=== PATIENT | female | born 1940 | race Caucasian/White ===

== ENCOUNTER → 2016-03-19 | Outpatient (CLI) | payer MEDICARE, OTHER ==
[~2016-03-19] MED LIST: ATE50T PO; GLIP-116 PO; LATA0.0015 EACHEYE; LEVO0.5S24 OP; LIS20T PO; MET50T PO; NIFE60TA59 PO; RIVA20TA PO
[2016-03-19 12:07] LABS: Basophils # (auto) 0 uL; Basophils % (auto) 0.4 % (0.0-2.0); Eosinophils # (auto) 0.2 uL; Eosinophils % (auto) 1.7 % (0.0-7.0); Hematocrit 45.8 % (36.0-46.0); Hemoglobin 14.8 g/dL (12.2-16.2); Lymphocytes # (auto) 1.7 uL; Lymphocytes % (auto) 16.5 % (10.0-50.0); Mean Corpuscular Hemoglobin 28.2 pg (28.0-32.0); Mean Corpuscular Hgb Conc. 32.2 g/dL (32.0-36.0); Mean Corpuscular Volume 87.4 fL (80.0-100.0); Mean Platelet Volume 10.2 fL (7.4-10.4); Monocytes # (auto) 0.7 uL; Monocytes % (auto) 7.1 % (0.0-12.0); Neutrophils # (auto) 7.6 uL; Neutrophils % (auto) 74.3 % (37.0-80.0); Platelet Count (auto) 229 10^3/uL (140-450); Red Cell Distribution Width 13.7 % (11.6-16.0); White Blood Cell 10.3 10^3/uL (4.4-10.8)
[2016-03-19 12:26] LABS: Albumin 3.9 g/dL (3.4-5.0); BUN/Creatinine Ratio 19.9; Calcium 9.7 mg/dL (8.5-10.1); Phosphorus 2.8 mg/dL (2.5-4.90); Potassium 4.4 mmol/L (3.5-5.1); Uric Acid 6.8 mg/dL (2.6-6.0)
[2016-03-19 12:32] LABS: Urine Protein/Creatinine Ratio 0.43
[2016-03-19 14:23] LABS: Urine Bilirubin Negative (Negative); Urine Blood Negative /uL (Negative); Urine Color Yellow (Yellow); Urine Ketone Negative (Negative); Urine Nitrite Negative (Negative); Urine RBC 4 /hpf (0 - 4); Urine Squamous Epithelial Cell FEW /hpf (<5); Urine Urobilinogen Normal (Negative); Urine pH 5.5 (5.0-8.0)
[2016-03-19 14:25] LABS: Urine Glucose 2+ mg/dL (Normal)
== END | disposition home or self-care (01) ==
LOC: LAB 10:43
PROVIDERS: ATTEND Internal Medicine Nephrology
DX: N18.3 Chronic kidney disease, stage 3 (moderate) (principal); D63.1 Anemia in chronic kidney disease; E21.3 Hyperparathyroidism, unspecified; E78.5 Hyperlipidemia, unspecified; M10.9 Gout, unspecified; R80.9 Proteinuria, unspecified; E55.9 Vitamin D deficiency, unspecified
CPT/HCPCS: 36415; 80069; 81001; 82306; 82570; 83970; 84156; 84550; 85025

== ENCOUNTER → 2016-09-17 | Outpatient (CLI) | payer MEDICARE, OTHER ==
[2016-09-17 08:32] LABS: Basophils # (auto) 0 uL; Basophils % (auto) 0.2 % (0.0-2.0); CONDITION Y; Eosinophils # (auto) 0.3 uL; Eosinophils % (auto) 2.9 % (0.0-7.0); Hematocrit 46.3 % (36.0-46.0); Lymphocytes # (auto) 1.7 uL; Lymphocytes % (auto) 15.6 % (10.0-50.0); Mean Corpuscular Hemoglobin 30.3 pg (28.0-32.0); Mean Corpuscular Hgb Conc. 34.5 g/dL (32.0-36.0); Mean Corpuscular Volume 87.8 fL (80.0-100.0); Mean Platelet Volume 8.6 fL (7.4-10.4); Monocytes # (auto) 1.1 uL; Monocytes % (auto) 9.6 % (0.0-12.0); Neutrophils # (auto) 7.9 uL; Neutrophils % (auto) 71.7 % (37.0-80.0); Platelet Count (auto) 265 10^3/uL (140-450); Red Cell Distribution Width 13.1 % (11.6-16.0); White Blood Cell 11.1 10^3/uL (4.4-10.8)
[2016-09-17 08:51] LABS: Albumin 4.2 g/dL (3.4-5.0); BUN/Creatinine Ratio 18.3; Calcium 9.9 mg/dL (8.5-10.1); Phosphorus 3.1 mg/dL (2.5-4.90); Potassium 4.7 mmol/L (3.5-5.1); Uric Acid 7.5 mg/dL (2.6-6.0)
== END | disposition home or self-care (01) ==
LOC: LAB 07:53
PROVIDERS: ATTEND Internal Medicine Nephrology
DX: N18.4 Chronic kidney disease, stage 4 (severe) (principal); D63.1 Anemia in chronic kidney disease; E21.3 Hyperparathyroidism, unspecified; E78.5 Hyperlipidemia, unspecified; M10.9 Gout, unspecified; R80.9 Proteinuria, unspecified; E55.9 Vitamin D deficiency, unspecified
CPT/HCPCS: 36415; 80069; 82306; 84550; 85025

== ENCOUNTER → 2016-10-23 | Outpatient (CLI) | payer MEDICARE, OTHER ==
[2016-10-23 08:39] LABS: Basophils # (auto) 0 uL; Basophils % (auto) 0.1 % (0.0-2.0); CONDITION Y; Eosinophils # (auto) 0.3 uL; Eosinophils % (auto) 2.7 % (0.0-7.0); Hematocrit 46.4 % (36.0-46.0); Hemoglobin 15.9 g/dL (12.2-16.2); Lymphocytes # (auto) 1.5 uL; Lymphocytes % (auto) 14.1 % (10.0-50.0); Mean Corpuscular Hemoglobin 29.9 pg (28.0-32.0); Mean Corpuscular Hgb Conc. 34.2 g/dL (32.0-36.0); Mean Corpuscular Volume 87.4 fL (80.0-100.0); Mean Platelet Volume 8.8 fL (7.4-10.4); Monocytes # (auto) 0.8 uL; Monocytes % (auto) 7.9 % (0.0-12.0); Neutrophils % (auto) 75.2 % (37.0-80.0); Platelet Count (auto) 260 10^3/uL (140-450); Red Cell Distribution Width 13.2 % (11.6-16.0); White Blood Cell 10.6 10^3/uL (4.4-10.8)
[2016-10-23 08:58] LABS: Albumin 4.2 g/dL (3.4-5.0); BUN/Creatinine Ratio 17.7; Bilirubin, Total 0.9 mg/dL (0.2-1.0); Calcium 10.1 mg/dL (8.5-10.1); Potassium 4.1 mmol/L (3.5-5.1); Total Protein 8.4 g/dL (6.4-8.2)
[2016-10-24 07:51] LABS: Urine Bilirubin Negative (Negative); Urine Blood 1+ /uL (Negative); Urine Color Yellow (Yellow); Urine Glucose Normal (Normal); Urine Ketone Negative (Negative); Urine Mucus FEW (None Seen); Urine Nitrite Negative (Negative); Urine RBC 7 /hpf (0 - 4); Urine Urobilinogen Normal (Negative); Urine WBC Clumps PRESENT /hpf (None Seen); Urine pH 5.5 (5.0-8.0)
== END | disposition home or self-care (01) ==
LOC: LAB 08:03
PROVIDERS: ATTEND Internal Medicine
DX: I11.0 Hypertensive heart disease with heart failure (principal); I50.9 Heart failure, unspecified; E55.9 Vitamin D deficiency, unspecified; E78.3 Hyperchylomicronemia; E11.9 Type 2 diabetes mellitus without complications
CPT/HCPCS: 36415; 80053; 80061; 81001; 83036; 84443; 85025

== ENCOUNTER → 2017-01-21 | Outpatient (CLI) | payer MEDICARE, OTHER | END | disposition home or self-care (01) | LOC: LAB 08:24 | PROVIDERS: ATTEND Physician Assistant | DX: E03.9 Hypothyroidism, unspecified (principal) | CPT/HCPCS: 36415; 84443 ==

== ENCOUNTER 2017-02-01 07:36 | Emergency (ER) | payer MEDICARE, OTHER ==
[~2017-02-01] VITALS: Ht 165.1 cm; Wt 73.9 kg
[2017-02-01 08:12] VITALS: BP 122/52
== END 2017-02-01 09:20 | disposition home or self-care (01) ==
LOC: ER 07:46
DX: S82.832A Other fracture of upper and lower end of left fibula, initial encounter for closed fracture (principal); I11.0 Hypertensive heart disease with heart failure; I50.9 Heart failure, unspecified; E11.9 Type 2 diabetes mellitus without complications; X50.1XXA Overexertion from prolonged static or awkward postures, initial encounter; Y93.H3 Activity, building and construction; Y92.89 Other specified places as the place of occurrence of the external cause; Y99.8 Other external cause status
CPT/HCPCS: 29515; 73610

== ENCOUNTER → 2017-03-17 | Outpatient (CLI) | payer MEDICARE, OTHER ==
[~2017-03-17] MED LIST changes: +FURO20TA3 PO; +HYDR-4683 PO; +INSLANTI SC
[2017-03-17 08:53] LABS: Basophils # (auto) 0.1 uL; Basophils % (auto) 0.7 % (0.0-2.0); Eosinophils # (auto) 0.5 uL; Eosinophils % (auto) 3.7 % (0.0-7.0); Hematocrit 41.6 % (36.0-46.0); Hemoglobin 14.3 g/dL (12.2-16.2); Lymphocytes # (auto) 1.3 uL; Lymphocytes % (auto) 10.4 % (10.0-50.0); Mean Corpuscular Hemoglobin 29.3 pg (28.0-32.0); Mean Corpuscular Hgb Conc. 34.3 g/dL (32.0-36.0); Mean Corpuscular Volume 85.4 fL (80.0-100.0); Monocytes # (auto) 1.5 uL; Monocytes % (auto) 11.8 % (0.0-12.0); Neutrophils # (auto) 9.1 uL; Neutrophils % (auto) 73.4 % (37.0-80.0); Nucleated Red Blood Cells % 0.1 %; Platelet Count (auto) 301 10^3/uL (140-450); Red Blood Cells 4.87 10^6/uL (4.0-5.20); Red Cell Distribution Width 13.6 % (11.8-14.3); White Blood Cell 12.4 10^3/uL (4.4-10.8)
[2017-03-17 08:56] LABS: Urine Bacteria NONE SEEN /hpf (None Seen); Urine Blood Negative /uL (Negative); Urine Specific Gravity 1.016 (1.001-1.035); Urine WBC <1 /hpf (0 - 5)
[2017-03-17 09:21] LABS: Protein, Urine 10.2 mg/dL (0.0-11.9)
[2017-03-17 09:23] LABS: Albumin 3.3 g/dL (3.4-5.0); Calcium 9.9 mg/dL (8.5-10.1); Phosphorus 2.8 mg/dL (2.5-4.90); Potassium 3.7 mmol/L (3.5-5.1)
== END | disposition home or self-care (01) ==
LOC: LAB 08:00
PROVIDERS: ATTEND Internal Medicine Nephrology
DX: E55.9 Vitamin D deficiency, unspecified (principal); R80.9 Proteinuria, unspecified; I50.9 Heart failure, unspecified; Z79.899 Other long term (current) drug therapy
CPT/HCPCS: 36415; 80061; 80069; 81001; 82306; 82570; 83036; 84156; 84550; 85025

== ENCOUNTER → 2017-05-20 | Outpatient (CLI) | payer MEDICARE, OTHER ==
[2017-05-20 11:46] LABS: Basophils # (auto) 0.1 uL; Eosinophils # (auto) 0.3 uL; Eosinophils % (auto) 2.7 % (0.0-7.0); Hematocrit 47.2 % (36.0-46.0); Hemoglobin 16.3 g/dL (12.2-16.2); Lymphocytes # (auto) 2.2 uL; Lymphocytes % (auto) 21.3 % (10.0-50.0); Mean Corpuscular Hemoglobin 28.7 pg (28.0-32.0); Mean Corpuscular Hgb Conc. 34.5 g/dL (32.0-36.0); Monocytes # (auto) 0.9 uL; Monocytes % (auto) 8.6 % (0.0-12.0); Neutrophils # (auto) 6.8 uL; Neutrophils % (auto) 66.4 % (37.0-80.0); Nucleated Red Blood Cells % 0.1 %; Platelet Count (auto) 200 10^3/uL (140-450); Red Blood Cells 5.68 10^6/uL (4.0-5.20); Red Cell Distribution Width 13.9 % (11.8-14.3); White Blood Cell 10.2 10^3/uL (4.4-10.8)
[2017-05-20 12:38] LABS: BUN/Creatinine Ratio 24.2; Bilirubin, Total 0.8 mg/dL (0.2-1.0); Potassium 3.6 mmol/L (3.5-5.1); Total Protein 8.7 g/dL (6.4-8.2)
[2017-05-20 12:40] LABS: Free T4 (Free Thyroxine) 0.8 ng/dL (0.89-1.76); T3 Total 0.9 ng/mL (0.60-1.81)
== END | disposition home or self-care (01) ==
LOC: LAB 11:12
PROVIDERS: ATTEND Physician Assistant
DX: E11.22 Type 2 diabetes mellitus with diabetic chronic kidney disease (principal); N18.4 Chronic kidney disease, stage 4 (severe); E78.2 Mixed hyperlipidemia; E03.9 Hypothyroidism, unspecified
CPT/HCPCS: 36415; 80053; 80061; 82270; 84439; 84443; 84480; 85025

== ENCOUNTER → 2018-09-02 | Outpatient (CLI) | payer MEDICARE, OTHER ==
[2018-09-02 10:15] LABS: Basophils # (auto) 0.1 uL; Basophils % (auto) 1.2 % (0.0-2.0); Eosinophils # (auto) 0.3 uL; Eosinophils % (auto) 3.3 % (0.0-7.0); Hematocrit 45.2 % (36.0-46.0); Hemoglobin 15.9 g/dL (12.2-16.2); Lymphocytes # (auto) 1.5 uL; Lymphocytes % (auto) 18.2 % (10.0-50.0); Mean Corpuscular Hemoglobin 28.7 pg (28.0-32.0); Mean Corpuscular Hgb Conc. 35.2 g/dL (32.0-36.0); Mean Corpuscular Volume 81.4 fL (80.0-100.0); Monocytes # (auto) 0.9 uL; Monocytes % (auto) 10.6 % (0.0-12.0); Neutrophils # (auto) 5.5 uL; Neutrophils % (auto) 66.7 % (37.0-80.0); Nucleated Red Blood Cells % 0.1 %; Platelet Count (auto) 209 10^3/uL (140-450); Red Blood Cells 5.55 10^6/uL (4.0-5.20); Red Cell Distribution Width 13.1 % (11.8-14.3); White Blood Cell 8.2 10^3/uL (4.4-10.8)
[2018-09-02 10:16] LABS: Urine Bacteria FEW /hpf (None Seen); Urine Blood Negative /uL (Negative); Urine Specific Gravity 1.008 (1.001-1.035); Urine WBC 30 /hpf (0 - 5)
[2018-09-02 10:31] LABS: Albumin 3.9 g/dL (3.4-5.0); Calcium 10.3 mg/dL (8.5-10.1); Potassium 4.3 mmol/L (3.5-5.1)
[2018-09-02 10:39] LABS: Bilirubin, Total 0.9 mg/dL (0.2-1.0); Total Protein 7.6 g/dL (6.4-8.2)
== END | disposition home or self-care (01) ==
LOC: LAB 09:46
PROVIDERS: ATTEND Physician Assistant
DX: I13.0 Hypertensive heart and chronic kidney disease with heart failure and stage 1 through stage 4 chronic kidney disease, or unspecified chronic kidney disease (principal); E11.22 Type 2 diabetes mellitus with diabetic chronic kidney disease; I50.42 Chronic combined systolic (congestive) and diastolic (congestive) heart failure; N18.4 Chronic kidney disease, stage 4 (severe)
CPT/HCPCS: 36415; 80053; 80061; 81001; 83036; 85025

== ENCOUNTER → 2018-09-17 | Outpatient (CLI) | payer MEDICARE, OTHER ==
[~2018-09-17] MED LIST changes: -GLIP-116 PO; +GLIP10TA9 PO; -HYDR-4683 PO; +HYDR-4833 PO; -LEVO0.5S24 OP; +LEVO0.5S6 OP
[2018-09-17 09:47] LABS: Basophils # (auto) 0.1 uL; Basophils % (auto) 1.2 % (0.0-2.0); Eosinophils # (auto) 0.3 uL; Eosinophils % (auto) 3.4 % (0.0-7.0); Hematocrit 46.8 % (36.0-46.0); Hemoglobin 16.3 g/dL (12.2-16.2); Lymphocytes # (auto) 1.5 uL; Lymphocytes % (auto) 16.8 % (10.0-50.0); Mean Corpuscular Hemoglobin 28.6 pg (28.0-32.0); Mean Corpuscular Hgb Conc. 34.8 g/dL (32.0-36.0); Mean Corpuscular Volume 82.2 fL (80.0-100.0); Monocytes # (auto) 0.9 uL; Monocytes % (auto) 10.4 % (0.0-12.0); Neutrophils # (auto) 6.2 uL; Neutrophils % (auto) 68.2 % (37.0-80.0); Platelet Count (auto) 225 10^3/uL (140-450); Red Cell Distribution Width 13.2 % (11.8-14.3); White Blood Cell 9.1 10^3/uL (4.4-10.8)
[2018-09-17 10:22] LABS: Albumin 3.8 g/dL (3.4-5.0); BUN/Creatinine Ratio 19.1; Calcium 9.8 mg/dL (8.5-10.1); Potassium 4.1 mmol/L (3.5-5.1)
[2018-09-17 10:33] LABS: Free T4 (Free Thyroxine) 1.74 ng/dL (0.89-1.76); Phosphorus 3.2 mg/dL (2.5-4.90); T3 Total 1.09 ng/mL (0.60-1.81); Uric Acid 7.1 mg/dL (2.6-6.0)
== END | disposition home or self-care (01) ==
LOC: LAB 09:17
PROVIDERS: ATTEND Physician Assistant
DX: E55.9 Vitamin D deficiency, unspecified (principal); E03.9 Hypothyroidism, unspecified; I12.9 Hypertensive chronic kidney disease with stage 1 through stage 4 chronic kidney disease, or unspecified chronic kidney disease; D63.1 Anemia in chronic kidney disease; N18.3 Chronic kidney disease, stage 3 (moderate); E21.3 Hyperparathyroidism, unspecified; E78.5 Hyperlipidemia, unspecified; M10.9 Gout, unspecified; R80.9 Proteinuria, unspecified
CPT/HCPCS: 36415; 80069; 82306; 83970; 84439; 84443; 84480; 84550; 85025

== ENCOUNTER → 2018-09-21 | Outpatient (CLI) | payer MEDICARE, OTHER ==
[2018-09-21 13:36] LABS: Urine Bacteria FEW /hpf (None Seen); Urine Blood Negative /uL (Negative); Urine Specific Gravity 1.005 (1.001-1.035); Urine WBC 9 /hpf (0 - 5)
[2018-09-21 13:45] LABS: Protein, Urine < 5.0 mg/dL (0.0-11.9)
[2018-09-21 13:53] LABS: Creatinine, Urine 9 mg/dL (30.0-125.0)
== END | disposition home or self-care (01) ==
LOC: LAB 13:07
PROVIDERS: ATTEND Internal Medicine Nephrology
DX: E55.9 Vitamin D deficiency, unspecified (principal); R80.9 Proteinuria, unspecified; M10.9 Gout, unspecified; E78.5 Hyperlipidemia, unspecified; E21.3 Hyperparathyroidism, unspecified; I12.9 Hypertensive chronic kidney disease with stage 1 through stage 4 chronic kidney disease, or unspecified chronic kidney disease; E11.22 Type 2 diabetes mellitus with diabetic chronic kidney disease; N18.3 Chronic kidney disease, stage 3 (moderate); D63.1 Anemia in chronic kidney disease
CPT/HCPCS: 81001; 82570; 84156

== ENCOUNTER → 2018-10-23 | Outpatient (CLI) | payer MEDICARE, OTHER | END | disposition home or self-care (01) | LOC: XYW 07:38 | PROVIDERS: ATTEND Internal Medicine | DX: I08.2 Rheumatic disorders of both aortic and tricuspid valves (principal); I12.9 Hypertensive chronic kidney disease with stage 1 through stage 4 chronic kidney disease, or unspecified chronic kidney disease; E11.22 Type 2 diabetes mellitus with diabetic chronic kidney disease; N18.9 Chronic kidney disease, unspecified; E11.21 Type 2 diabetes mellitus with diabetic nephropathy; I27.20 Pulmonary hypertension, unspecified | CPT/HCPCS: 93306 ==

== ENCOUNTER 2018-11-18 08:23 | Day surgery (SDC) | payer MEDICARE, OTHER ==
[2018-11-16 10:26] LABS: Basophils # (auto) 0.1 uL; Basophils % (auto) 0.9 % (0.0-2.0); Eosinophils # (auto) 0.4 uL; Eosinophils % (auto) 2.9 % (0.0-7.0); Hematocrit 45.6 % (36.0-46.0); Hemoglobin 15.7 g/dL (12.2-16.2); Lymphocytes # (auto) 1.6 uL; Lymphocytes % (auto) 11.3 % (10.0-50.0); Mean Corpuscular Hemoglobin 28.6 pg (28.0-32.0); Mean Corpuscular Hgb Conc. 34.3 g/dL (32.0-36.0); Mean Corpuscular Volume 83.4 fL (80.0-100.0); Monocytes # (auto) 1.1 uL; Monocytes % (auto) 7.6 % (0.0-12.0); Neutrophils % (auto) 77.3 % (37.0-80.0); Nucleated Red Blood Cells % 0.1 %; Platelet Count (auto) 223 10^3/uL (140-450); Red Blood Cells 5.47 10^6/uL (4.0-5.20); Red Cell Distribution Width 13.3 % (11.8-14.3); White Blood Cell 14.3 10^3/uL (4.4-10.8)
[2018-11-16 10:41] LABS: Partial Thromboplastin Time 27.1 sec (23.64-32.05)
[2018-11-16 10:51] LABS: Albumin 4.3 g/dL (3.4-5.0); Calcium 10.2 mg/dL (8.5-10.1); Potassium 4.6 mmol/L (3.5-5.1)
[2018-11-16 10:54] LABS: Bilirubin, Total 0.9 mg/dL (0.2-1.0); Total Protein 8.2 g/dL (6.4-8.2)
[~2018-11-18] VITALS: Ht 165.1 cm; Wt 73.9 kg
[~2018-11-18 08:23] MED LIST changes: +ACET-1158 PO; +AMLO10TA13 PO; -ATE50T PO; +ATOR10TA52 PO; -GLIP10TA9 PO; -HYDR-4833 PO; -LATA0.0015 EACHEYE; +LEV100T PO; -LIS20T PO; -MET50T PO; -NIFE60TA59 PO; +POTA99TA3 PO; -RIVA20TA PO
[2018-11-18] MEDS ORDERED: LIDOCAINE 2%HCL (LOCAL ANESTH.) INJ 20ML MDV ONE (08:57)
[2018-11-18] MEDS ORDERED: IOHEXOL 350 MG/ML 100ML IJ ONE (08:57)
[2018-11-18] MEDS ORDERED: fentaNYL CITRATE 100 MCG/2 ML VL ONE (09:06)
[2018-11-18] MEDS ORDERED: ANGIOMAX 250 MG VIAL IV ONE (09:06)
[2018-11-18] MEDS ORDERED: SODIUM CHL 0.9% 0 ML ONE (09:06)
[2018-11-18] MEDS ORDERED: MIDAZOLAM HCL 1MG/1ML-2 ML VIAL ONE (09:06)
[2018-11-18] MEDS ORDERED: IODIXANOL 320MG/ML 100ML BTL IV ONE (09:16)
[2018-11-18] MEDS ORDERED: ONDANSETRON HCL 4 MG/2 ML VIAL IV PRN (10:45)
[2018-11-18] MEDS ORDERED: ACETAMINOPHEN 500 MG TAB PO PRN (10:45)
[2018-11-18] MEDS ORDERED: HYDROcodone-ACET 5/325MG TAB PO PRN (10:45)
== END 2018-11-18 12:44 | disposition home or self-care (01) ==
LOC: CATH 08:23
PROVIDERS: ATTEND Internal Medicine
DX: I35.0 Nonrheumatic aortic (valve) stenosis (principal); I25.10 Atherosclerotic heart disease of native coronary artery without angina pectoris; I27.21 Secondary pulmonary arterial hypertension; E78.5 Hyperlipidemia, unspecified; I11.0 Hypertensive heart disease with heart failure; I50.9 Heart failure, unspecified; E11.9 Type 2 diabetes mellitus without complications; Z87.891 Personal history of nicotine dependence; Z95.2 Presence of prosthetic heart valve; Z79.4 Long term (current) use of insulin; Z98.51 Tubal ligation status; Z79.899 Other long term (current) drug therapy
CPT/HCPCS: 36415; 80053; 85025; 85610; 85730; 93005; 93460; C1751; C1894; J1644; J2250; J3010; J7030; Q9967; 99152; 99153

== ENCOUNTER → 2018-12-10 | Outpatient (CLI) | payer MEDICARE, BC ==
[2018-12-10 09:33] VITALS: BP 145/61
--- NOTE | 2018-12-10 09:33 | NUR ---
[facility] PT ARRIVED AT [facility] FOR NEW PAH TREATMENT. PT A/O X 4 0 DISTRESS BILATERAL LOWER EDEMA. MD INCREASED PTS LASIX DOSE LAST WEEK. VSS
[2018-12-10 12:40] VITALS: BP 142/59
--- NOTE | 2018-12-10 12:40 | NUR ---
Discharge Instructions See e-MAR for any mediations given with this visit. Patient education given on disease process. Patient verbalized understanding. Previous labs reviewed. Patient discharged in stable condition with after care instructions and follow up appointment. CARDIODYNAMICS 6MWT EKG PAPERWORK SIGNED FOR RICHARD JUDGE 1 WEEK FOLLOW UP
== END | disposition home or self-care (01) ==
LOC: CHF HDHVI 09:24
PROVIDERS: ATTEND Internal Medicine
DX: R60.0 Localized edema (principal); I27.21 Secondary pulmonary arterial hypertension; R53.83 Other fatigue; R94.31 Abnormal electrocardiogram [ECG] [EKG]; I13.0 Hypertensive heart and chronic kidney disease with heart failure and stage 1 through stage 4 chronic kidney disease, or unspecified chronic kidney disease; E11.22 Type 2 diabetes mellitus with diabetic chronic kidney disease; I50.9 Heart failure, unspecified; N18.9 Chronic kidney disease, unspecified
CPT/HCPCS: 93005; 93701; 94618; G0463

== ENCOUNTER → 2019-01-04 | Outpatient (CLI) | payer MEDICARE, BC | END | disposition home or self-care (01) | LOC: XY 07:42 | PROVIDERS: ATTEND Internal Medicine | DX: J84.10 Pulmonary fibrosis, unspecified (principal); I27.20 Pulmonary hypertension, unspecified; E11.9 Type 2 diabetes mellitus without complications; I50.9 Heart failure, unspecified; Z95.2 Presence of prosthetic heart valve; Z87.891 Personal history of nicotine dependence | CPT/HCPCS: 78582; A9540; A9558 ==

== ENCOUNTER → 2019-01-06 | Outpatient (CLI) | payer MEDICARE, BC ==
[~2019-01-06] MED LIST changes: +CYANOCOBALAMIN (B-12) 1000 MCG/1 ML VIAL IM ONE; +CYANOCOBALAMIN (B-12) 1000 MCG/1 ML VIAL ONE
--- NOTE | 2019-01-06 10:35 | NUR ---
PT. TO PAH CLINIC FOR EVAL. AND TX OF PAH. PT. WAS APPROVED FOR CHANGE OF PAH DRUG TO ADEMPAS FROM SILDENAFIL PER DR. HOUSE, BUT CO-PAY IS IS 1,454.00, IC PT. CANNOT AFFORD. PT. HAS BEEN OUT OF SILDENAFIL X 3 WEEKS, WAS GIVEN SAMPLE OF OPSUMIT BY DR. HOUSE, BUT HAD NOT STARTED MEDICATION YET. PT. STATES SOB WITH MILD-MODERATE EXERTION BUT DOESN'T FEEL WORSE AFTER BEING OFF MEDS. ORDERS RECEIVED AND CARRIED OUT. SEE NSG ASSESS.
[2019-01-06 10:45] VITALS: BP 146/68
--- NOTE | 2019-01-06 10:56 | NUR ---
MEDS: PT. MEDICATED WITH VIT. B12 1000MCG IM LFT DELT. PER MD ORDER.
--- NOTE | 2019-01-06 11:15 | NUR ---
CARDIODYNAMICS DONE WITH RESULTS REVIEWED WITH PT. AND CHARTED. PT. INSTRUCTED TO START OPSUMIT TODAY PER MD ORDER. MEDICATION SIDE EFFECTS AND ADVERSE EFFECTS POTENTIAL WAS PREVIOUSLY DISCUSSED WITH PT. WITH WRITTEN LIT. GIVEN TO PT.
[2019-01-06 11:30] VITALS: BP 148/63
--- NOTE | 2019-01-06 11:30 | NUR ---
Discharge Instructions See e-MAR for any mediations given with this visit. Patient education given on disease process. Patient verbalized understanding. Previous labs reviewed. Patient discharged in stable condition with after care instructions and follow up appointment. RX FOR SILDENAFIL 20MG TID CALLED INTO [facility]. PER MD ORDER. PT. INSTRUCTED TO CONTINUE THIS MED UNTIL CO-PAY ASSIST. GETS RESOLVED. PT. TO RTC IN 1 WEEK.
[2019-01-06 16:03] LABS: Albumin 4.1 g/dL (3.4-5.0); Calcium 9.8 mg/dL (8.5-10.1); Magnesium 2.1 mg/dL (1.6-2.6)
[2019-01-06 16:06] LABS: BUN/Creatinine Ratio 16.3
[2019-01-06 16:12] LABS: Basophils # (auto) 0.1 uL; Basophils % (auto) 1.4 % (0.0-2.0); Eosinophils # (auto) 0.3 uL; Eosinophils % (auto) 3.9 % (0.0-7.0); Hematocrit 49.2 % (36.0-46.0); Hemoglobin 16.8 g/dL (12.2-16.2); Lymphocytes # (auto) 1.4 uL; Lymphocytes % (auto) 19.5 % (10.0-50.0); Mean Corpuscular Hemoglobin 28.8 pg (28.0-32.0); Mean Corpuscular Hgb Conc. 34.1 g/dL (32.0-36.0); Mean Corpuscular Volume 84.6 fL (80.0-100.0); Monocytes # (auto) 0.7 uL; Monocytes % (auto) 9.5 % (0.0-12.0); Neutrophils # (auto) 4.8 uL; Neutrophils % (auto) 65.7 % (37.0-80.0); Nucleated Red Blood Cells % 0.5 %; Platelet Count (auto) 142 10^3/uL (140-450); Red Blood Cells 5.82 10^6/uL (4.0-5.20); Red Cell Distribution Width 13.2 % (11.8-14.3); White Blood Cell 7.3 10^3/uL (4.4-10.8)
== END | disposition home or self-care (01) ==
LOC: CHF HDHVI 10:19
PROVIDERS: ATTEND Internal Medicine
DX: I27.21 Secondary pulmonary arterial hypertension (principal); D64.9 Anemia, unspecified; I13.0 Hypertensive heart and chronic kidney disease with heart failure and stage 1 through stage 4 chronic kidney disease, or unspecified chronic kidney disease; E11.22 Type 2 diabetes mellitus with diabetic chronic kidney disease; I50.9 Heart failure, unspecified; N18.9 Chronic kidney disease, unspecified; I25.10 Atherosclerotic heart disease of native coronary artery without angina pectoris; E78.5 Hyperlipidemia, unspecified; E83.40 Disorders of magnesium metabolism, unspecified; Z79.4 Long term (current) use of insulin; Z87.891 Personal history of nicotine dependence; Z79.899 Other long term (current) drug therapy
CPT/HCPCS: 36415; 80053; 83735; 85025; 93701; 96372; G0463; J3420

== ENCOUNTER → 2019-03-15 | Outpatient (CLI) | payer MEDICARE, OTHER ==
[~2019-03-15] MED LIST changes: -CYANOCOBALAMIN (B-12) 1000 MCG/1 ML VIAL IM ONE; -CYANOCOBALAMIN (B-12) 1000 MCG/1 ML VIAL ONE
[2019-03-15 11:31] LABS: Potassium 4.3 mmol/L (3.5-5.1)
[2019-03-15 11:48] LABS: Albumin 3.9 g/dL (3.4-5.0); BUN/Creatinine Ratio 33.7; Bilirubin, Total 0.7 mg/dL (0.2-1.0); Calcium 9.8 mg/dL (8.5-10.1); Total Protein 7.7 g/dL (6.4-8.2)
== END | disposition home or self-care (01) ==
LOC: LAB 09:26
PROVIDERS: ATTEND Internal Medicine
DX: I50.9 Heart failure, unspecified (principal); R00.2 Palpitations
CPT/HCPCS: 36415; 80053

== ENCOUNTER → 2019-04-14 | Outpatient (CLI) | payer MEDICARE, OTHER | END | disposition home or self-care (01) | LOC: XYW 08:36 | PROVIDERS: ATTEND Internal Medicine | DX: I08.3 Combined rheumatic disorders of mitral, aortic and tricuspid valves (principal); I48.91 Unspecified atrial fibrillation; I27.21 Secondary pulmonary arterial hypertension | CPT/HCPCS: 93306 ==

== ENCOUNTER → 2019-04-20 | Outpatient (CLI) | payer MEDICARE, BC ==
[~2019-04-20] MED LIST changes: +CYANOCOBALAMIN (B-12) 1000 MCG/1 ML VIAL IM ONE; +CYANOCOBALAMIN (B-12) 1000 MCG/1 ML VIAL ONE
[2019-04-20 08:20] VITALS: BP 150/53
[2019-04-20 09:45] VITALS: BP 148/58
[2019-04-20 12:01] LABS: Basophils # (auto) 0.1 10 ^3/uL (0-0.2); Basophils % (auto) 1.1 % (0.0-2.0); Eosinophils # (auto) 0.3 10 ^3/uL (0-0.8); Eosinophils % (auto) 3.7 % (0.0-7.0); Hematocrit 42.8 % (36.0-46.0); Hemoglobin 14.5 g/dL (12.2-16.2); Lymphocytes # (auto) 1.3 10 ^3/uL (0.4-5.4); Lymphocytes % (auto) 19.3 % (10.0-50.0); Mean Corpuscular Hemoglobin 28.3 pg (28.0-32.0); Mean Corpuscular Hgb Conc. 33.8 g/dL (32.0-36.0); Mean Corpuscular Volume 83.7 fL (80.0-100.0); Monocytes # (auto) 0.7 10 ^3/uL (0-1.3); Monocytes % (auto) 10.6 % (0.0-12.0); Neutrophils # (auto) 4.6 10 ^3/uL (1.6-8.6); Neutrophils % (auto) 65.3 % (37.0-80.0); Nucleated Red Blood Cells % 0.4 %; Platelet Count (auto) 182 10^3/uL (140-450); Red Blood Cells 5.12 10^6/uL (4.0-5.20)
[2019-04-20 12:04] LABS: Albumin 4.1 g/dL (3.4-5.0); Calcium 9.8 mg/dL (8.5-10.1); Magnesium 2.5 mg/dL (1.6-2.6); Potassium 4.6 mmol/L (3.5-5.1)
[2019-04-20 12:07] LABS: BUN/Creatinine Ratio 32.6; Bilirubin, Total 0.8 mg/dL (0.2-1.0); Total Protein 8.1 g/dL (6.4-8.2)
== END | disposition home or self-care (01) ==
LOC: CHF HDHVI 08:27
PROVIDERS: ATTEND Internal Medicine
DX: I27.21 Secondary pulmonary arterial hypertension (principal); I48.91 Unspecified atrial fibrillation; R53.83 Other fatigue; K90.9 Intestinal malabsorption, unspecified; D51.9 Vitamin B12 deficiency anemia, unspecified; Z79.899 Other long term (current) drug therapy
CPT/HCPCS: 36415; 80053; 82306; 82607; 83735; 85025; 93701; 94618; 96372; G0463; J3420

== ENCOUNTER → 2019-07-27 | Outpatient (CLI) | payer MEDICARE, BC ==
[~2019-07-27] MED LIST changes: -CYANOCOBALAMIN (B-12) 1000 MCG/1 ML VIAL IM ONE; -CYANOCOBALAMIN (B-12) 1000 MCG/1 ML VIAL ONE
[2019-07-27 08:25] VITALS: BP 150/46
--- NOTE | 2019-07-27 08:25 | NUR ---
PT ARRIVED TO [facility] PT ARRIVED TO [facility] FOR MONTHLY PAH F/U. PT IS ALERT AND AWAKE WITH EVEN AND UNLABORED RESPIRATION. NO S/S OF SOB/DISTRESS OR PAIN NOTED. WILL CARRY OUT MD ORDERS. Addendum: 07/27/19 at 0901 by AG HATFIELD RN PER PT, STILL TAKING OPSUMIT 10MG AND ADEMPAS HAS BEEN INCREASED SINCE LAST VISIT FROM 1 MG TO 1.[address] HOUSE.
--- NOTE | 2019-07-27 08:45 | NUR ---
PT UP PERFORMING 6MWT WITH MOE MATHEWS
[2019-07-27 09:12] VITALS: BP 140/49
--- NOTE | 2019-07-27 09:12 | NUR ---
CHF CLINIC Discharge Instructions See e-MAR for any mediations given with this visit. Patient education given on disease process. Patient verbalized understanding. Previous labs reviewed. Patient discharged in stable condition with after care instructions and follow up appointment. NOTES 6MWT PERFORMED BY MOE MATHEWS, PT HAD NO CHANGE IN METERS SINCE LAST 6MWT. RESULTS REVIEWED WITH PT BY AG WHALEN. PT PROVIDED WITH VIT D SPRAY AND EDUCATED REGARDING USE. PT VERBALIZED UNDERSTANDING.
[2019-07-27 12:04] LABS: Basophils # (auto) 0.1 10 ^3/uL (0-0.2); Basophils % (auto) 0.9 % (0.0-2.0); Eosinophils # (auto) 0.2 10 ^3/uL (0-0.8); Eosinophils % (auto) 2.4 % (0.0-7.0); Hematocrit 38.3 % (36.0-46.0); Hemoglobin 13.3 g/dL (12.2-16.2); Lymphocytes # (auto) 1.1 10 ^3/uL (0.4-5.4); Lymphocytes % (auto) 13.8 % (10.0-50.0); Mean Corpuscular Hemoglobin 29.3 pg (28.0-32.0); Mean Corpuscular Hgb Conc. 34.6 g/dL (32.0-36.0); Mean Corpuscular Volume 84.6 fL (80.0-100.0); Monocytes # (auto) 0.8 10 ^3/uL (0-1.3); Monocytes % (auto) 9.3 % (0.0-12.0); Neutrophils # (auto) 6.1 10 ^3/uL (1.6-8.6); Neutrophils % (auto) 73.6 % (37.0-80.0); Platelet Count (auto) 214 10^3/uL (140-450); Red Blood Cells 4.53 10^6/uL (4.0-5.20); Red Cell Distribution Width 13.7 % (11.8-14.3); White Blood Cell 8.3 10^3/uL (4.4-10.8)
[2019-07-27 12:16] LABS: Potassium 4.7 mmol/L (3.5-5.1)
[2019-07-27 12:24] LABS: Albumin 4.1 g/dL (3.4-5.0); BUN/Creatinine Ratio 28.7; Bilirubin, Total 0.8 mg/dL (0.2-1.0); Calcium 9.5 mg/dL (8.5-10.1); Magnesium 2.5 mg/dL (1.6-2.6); Total Protein 7.4 g/dL (6.4-8.2)
== END | disposition home or self-care (01) ==
LOC: CHF HDHVI 08:25
PROVIDERS: ATTEND Internal Medicine Cardiovascular Disease
DX: I11.0 Hypertensive heart disease with heart failure (principal); D51.9 Vitamin B12 deficiency anemia, unspecified; I50.23 Acute on chronic systolic (congestive) heart failure; D64.9 Anemia, unspecified; E83.40 Disorders of magnesium metabolism, unspecified
CPT/HCPCS: 36415; 80053; 82607; 83036; 83735; 83880; 85025; 94618; G0463

== ENCOUNTER → 2019-07-30 | Outpatient (CLI) | payer MEDICARE, BC ==
[2019-07-30 13:11] LABS: Calcium 9.5 mg/dL (8.5-10.1); Potassium 4.6 mmol/L (3.5-5.1)
[2019-07-30 13:13] LABS: BUN/Creatinine Ratio 32.3
== END | disposition home or self-care (01) ==
LOC: CHF HDHVI 08:54
PROVIDERS: ATTEND Internal Medicine
DX: I10 Essential (primary) hypertension (principal)
CPT/HCPCS: 36415; 80048

== ENCOUNTER → 2019-08-12 | Outpatient (CLI) | payer MEDICARE, BC ==
[~2019-08-12] MED LIST changes: +AMOX500T3 PO; +ATOR20TA50 PO; +DICL1GEL50 TD; +FURO40TA4 PO; +LISI-646 PO; +MACI1TAB2 PO; +MULT-1058 PO; +RIOC1TAB5 PO
== END | disposition home or self-care (01) ==
LOC: XYW 09:54
PROVIDERS: ATTEND Internal Medicine
DX: I35.2 Nonrheumatic aortic (valve) stenosis with insufficiency (principal); I27.20 Pulmonary hypertension, unspecified; I07.1 Rheumatic tricuspid insufficiency; I05.0 Rheumatic mitral stenosis
CPT/HCPCS: 93306

== ENCOUNTER 2019-09-07 07:17 | Inpatient (IN) | payer MEDICARE, OTHER ==
[~2019-09-07] VITALS: Ht 165.1 cm; Wt 89.3 kg
[~2019-09-07 07:17] MED LIST changes: -AMOX500T3 PO; -ATOR20TA50 PO; -DICL1GEL50 TD; -FURO40TA4 PO; -LISI-646 PO; -MACI1TAB2 PO; -MULT-1058 PO; -RIOC1TAB5 PO
[2019-09-07] MEDS ORDERED: HYDROcodone-ACET 5/325MG TAB PO ONE (09:15)
[2019-09-07 10:54] LABS: Basophils # (auto) 0 10 ^3/uL (0-0.2); Basophils % (auto) 0.4 % (0.0-2.0); Eosinophils # (auto) 0.2 10 ^3/uL (0-0.8); Eosinophils % (auto) 1.4 % (0.0-7.0); Hematocrit 42.5 % (36.0-46.0); Hemoglobin 14.5 g/dL (12.2-16.2); Lymphocytes % (auto) 9.1 % (10.0-50.0); Mean Corpuscular Hemoglobin 28.3 pg (28.0-32.0); Mean Corpuscular Hgb Conc. 34.1 g/dL (32.0-36.0); Monocytes # (auto) 1.2 10 ^3/uL (0-1.3); Monocytes % (auto) 10.7 % (0.0-12.0); Neutrophils % (auto) 78.4 % (37.0-80.0); Nucleated Red Blood Cells % 0.2 %; Platelet Count (auto) 270 10^3/uL (140-450); Red Blood Cells 5.12 10^6/uL (4.0-5.20); Red Cell Distribution Width 13.2 % (11.8-14.3); White Blood Cell 11.4 10^3/uL (4.4-10.8)
[2019-09-07 11:10] LABS: INR 1.05 (0.9-1.15)
[2019-09-07 11:21] LABS: Albumin 3.8 g/dL (3.4-5.0); BUN/Creatinine Ratio 31.1
[2019-09-07 11:23] LABS: Total Protein 7.5 g/dL (6.4-8.2)
[2019-09-07] MEDS ORDERED: MORPHINE SULF INJ 2 MG/ML SYRINGE 1ML IV ONE (12:45)
[2019-09-07] MEDS ORDERED: ONDANSETRON HCL 4 MG/2 ML VIAL IV ONE (12:45)
[2019-09-07] MEDS ORDERED: NITROGLYCERIN 0.4 MG SL TAB SL PRN (13:30)
[2019-09-07] MEDS ORDERED: MORPHINE SULF INJ 2 MG/ML SYRINGE 1ML IV PRN (13:30)
[2019-09-07] MEDS: SODIUM CHLORIDE 0.9% 1,000 ML IV SCH (13:30)
[2019-09-07] MEDS: MORPHINE SULF INJ 2 MG/ML SYRINGE 1ML IV PRN ×4 (15:25→22:46)
[2019-09-07] MEDS: ONDANSETRON HCL 4 MG/2 ML VIAL IV PRN (15:26)
[2019-09-07] MEDS ORDERED: MACI1TAB2 PO (16:19)
[2019-09-07] MEDS ORDERED: ATOR20TA50 PO (16:19)
[2019-09-07] MEDS ORDERED: RIOC1TAB5 PO (16:19)
[2019-09-07] MEDS ORDERED: DICL1GEL50 TD (16:19)
[2019-09-07] MEDS ORDERED: LISI-646 PO (16:19)
[2019-09-07] MEDS ORDERED: FURO40TA4 PO (16:19)
[2019-09-07] MEDS ORDERED: AMOX500T3 PO (16:22)
[2019-09-07] MEDS ORDERED: MULT-1058 PO (16:22)
[2019-09-07] MEDS ORDERED: ALBUTEROL SULF 2.5 MG/0.5ML(0.5%) NEB SOLN NEB PRN (16:30)
[2019-09-07] MEDS ORDERED: LACTULOSE 20Gm/30ML SOLN PO PRN (16:30)
[2019-09-07] MEDS ORDERED: ACETAMINOPHEN 500 MG TAB PO PRN (16:30)
[2019-09-07] MEDS ORDERED: ONDANSETRON HCL 4 MG/2 ML VIAL IV PRN (16:30)
[2019-09-07] MEDS ORDERED: DEXTROSE (50%) 50ML SYRG IV PRN (16:30)
[2019-09-07] MEDS ORDERED: TEMAZEPAM 15 MG CAP PO PRN (16:30)
[2019-09-07] MEDS: InsuLIN REG 1unit/0.01ml Soln (100units/ml) SC SCH ×2 (17:00→22:47)
[2019-09-07 17:11] LABS: Urine Bacteria FEW /hpf (None Seen); Urine Blood Negative /uL (Negative); Urine Hyaline Cast FEW /lpf (0 - 2); Urine Specific Gravity 1.009 (1.001-1.035); Urine WBC 39 /hpf (0 - 5)
[2019-09-07] MEDS: ACCU-CHEK COMFORT CURVE STRIP VI SCH ×2 (17:20→22:47)
[2019-09-07] MEDS: LISINOPRIL 20 MG TAB PO SCH (18:00)
[2019-09-07] MEDS: INSULIN LANTUS (GLARGINE) 1 /0.01ml (100units/ml) SC SCH (18:00)
--- NOTE | 2019-09-07 19:19 | NUR ---
Respiratory note: PT SEEN AND ASSESSED FOR PRN MED NEB TX IN ER HALLWAY. TREATMENT NOT INDICATED AT THIS TIME. PT DENIES ANY RESPIRATORY DISTRESS. HR 66 RR 18 SP02 97% ON ROOM AIR.
[2019-09-07] MEDS: LEVOBUNOLOL 0.5% OP SCH (22:56)
[2019-09-07] MEDS: RIOCIGUAT BASE PO SCH (22:59)
[2019-09-07] MEDS: ATORVASTATIN 20 MG TAB PO SCH (22:59)
[2019-09-08] VITALS (7 sets, daily range): BP systolic 107–133; BP diastolic 45–89
[2019-09-08] MEDS: SODIUM CHLORIDE 0.9% 1,000 ML IV SCH ×3 (03:03→22:13)
--- NOTE | 2019-09-08 04:00 | NUR ---
WOUND Wound photo taken. Wound care done and optifoam gentle dressing applied to sacrum. Patient tolerated well.
--- NOTE | 2019-09-08 04:20 | NUR ---
PATIENT ARRIVED TO UNIT Patient arrived to unit via stretcher. Patient is bedrest and was safely transferred onto bed. Patient is A&O X's 4 with on s/s of distress and reports hip pain at a 8/10 at this time. Will administer medication as ordered. Educated patient on POC and to use call light when in need of any assistance. Oriented patient to unit/call light/ lights/ bed/ policies/tv/ call light remote. Patient verbalized understanding. Bed is in lowest/locked position with side rails up X's 2 and call light is within reach of patient. Bed alarm is on for safety. Patient is NPO for procedure. Patient aware. Will continue care.
[2019-09-08] MEDS: MORPHINE SULF INJ 2 MG/ML SYRINGE 1ML IV PRN ×3 (04:56→20:24)
--- NOTE | 2019-09-08 05:26 | NUR ---
PAIN REASSESSMENT Patient is resting in bed with eyes closed. No s/s of discomfort noted
[2019-09-08] MEDS: InsuLIN REG 1unit/0.01ml Soln (100units/ml) SC SCH ×4 (06:16→22:50)
[2019-09-08] MEDS: ACCU-CHEK COMFORT CURVE STRIP VI SCH ×4 (06:16→22:50)
[2019-09-08] MEDS: LEVOTHYROXINE SODIUM 100 MCG TAB PO SCH (06:22)
--- NOTE | 2019-09-08 06:26 | NUR ---
MRSA SWAB Sent to lab via [facility] system
--- NOTE | 2019-09-08 06:45 | NUR ---
MEDICATION HELD David & Fabien scheduled medication to be dispensed by pharmacy. Pharmacy was notified. Will inform day shift RN about medications.
--- NOTE | 2019-09-08 06:45 | NUR ---
TOOK DOWN POM TO PHARMACY
--- NOTE | 2019-09-08 07:40 | NUR ---
Received reports from noc shift rn. Patient alert and oriented x4, talking on the phone on initial encounter. Denies pain, no SOB or signs of distress. Plan of care discussed. Advised to call for assistance prn. Bed in low and locked position. call light within reach. Will continue to monitor q1hr and prn.
--- NOTE | 2019-09-08 09:03 | NUR ---
RT NOTE: PRN BREATHING TX. NOT INDICATED AT THIS TIME. NO S/S OF RESPIRATORY DISTRESS NOTED. PT. HR 77, RR 16, POX 92% R/A. PT. AWARE TO NOTIFY RN IF BREATHING TX. IS NEEDED.
[2019-09-08] MEDS: LEVOBUNOLOL 0.5% OP SCH ×2 (10:00→22:53)
[2019-09-08] MEDS: RIOCIGUAT BASE PO SCH ×3 (10:26→22:53)
--- NOTE | 2019-09-08 10:36 | NUR ---
DR. MASSEY AT BEDSIDE, DISCUSSED PLAN OF CARE WITH PATIENT. ORDERED TO DISCONTINUE MORPHINE 1MG AND KEEP MORPHINE 2MG.
--- NOTE | 2019-09-08 10:43 | NUR ---
WOUND CARE NOTE: Wound care in to see patient per wound care request regarding "sacral ulcer" that are noted present on admission. Bedside nurse took photograph of patient's wound upon admission for reference. Patient is 79 years old female with admitting diagnosis of Hip Fracture, Foot Fracture, Hyponatremia. Patient is resting in bed in room 276A. Patient is awake, alert and oriented. Patient is in no stated pain at this time, however mild pain noted upon turning. Her Roberto score is 14. Skin assessment done with the assistance of patient's nurse, MARLEE Robin. Noted patient's Left, medial and Rt sacrum has 6x7x0.5cm open pressure injury. Wound bed is red with yellow adherent slough. Rosa Elena wound is dark red, scant serous drainage noted, no odor noted. Patient reported that her sacral wound started "on July, I feel on a dirt". Intact ecchymosis also noted to her bilateral posterior thighs. Cleansed patient's sacral wound with wound cleanser, patted dry with gauze, applied Thera honey gel to open wound, Z Guard cream to rosa elena wound and covered with Opti foam sacral dressing. Patient also noted with partially avulsed R great toe nail, staff applied band aid. Patient tolerated, repositioned patient for comfort facing her left side, redistributed pressure points with pillows. Bed in low position, call michele within reach, bed alarm on. Unable to place patient on air mattress as it is contraindicated with fracture. RECOMMENDATION: Nursing to continue with Daily/PRN dressing change to sacral wound per MD order, Dietary consult, frequent turning and repositioning schedule as condition permits, redistribute pressure points with pillows, frequent rosa elena care/check, keep clean and dry, elevate heels on pillows, continue monitoring by wound care while patient is hospitalized. Addendum: 09/08/19 at 1546 by Suzie Hudson RN Amended: Links added.
--- NOTE | 2019-09-08 12:30 | NUR ---
CALLED DR. MASSEY AND INFORMED HIM OF PATIENT'S LOW SODIUM. DR. MASSEY ORDERED TO INCREASE NS AT 125ML AND NEPHRO CONSULT WITH DR. ADAN. WILL CARRY OUT ORDERS ACCORDINGLY.
[2019-09-08 12:32] LABS: BUN/Creatinine Ratio 27.1; Calcium 9.2 mg/dL (8.5-10.1); Potassium 4.1 mmol/L (3.5-5.1)
--- NOTE | 2019-09-08 13:40 | NUR ---
RECEIVED A CALL FROM OR INFORMING THAT PATIENT'S SURGERY IS POSTPONED TO Friday09/10/19 AT 0715. NO ANTICOAGULANT MEDICATION TO BE GIVEN UNTIL PROCEDURE IS COMPLETED.
[2019-09-08] MEDS: INSULIN LANTUS (GLARGINE) 1 /0.01ml (100units/ml) SC SCH (17:53)
[2019-09-08] MEDS: LISINOPRIL 20 MG TAB PO SCH (17:53)
--- NOTE | 2019-09-08 17:54 | NUR ---
HELD LANTUS 20units. Blood glucose was 88
--- NOTE | 2019-09-08 19:30 | NUR ---
Opening Shift Note Assumed care of patient, awake and alert x4. No S/S of distress/SOB or pain. Gutierrez is in place and hung below bladder draining yellow urine. NS infusing to the LFA IV at 125 mls/hr. Call light is within reach, side rails up x2, bed is in the lowest position. Instructed on POC and to call for assist PRN, will continue to monitor for changes Q1hr and PRN.
[2019-09-08] MEDS: ONDANSETRON HCL 4 MG/2 ML VIAL IV PRN (20:23)
--- NOTE | 2019-09-08 20:54 | NUR ---
Patient is complaining of pain to the left hip 9/0-10, morphine and zofran administered as ordered. Will reassess.
--- NOTE | 2019-09-08 21:30 | NUR ---
PAIN REASSESSMENT Patient states pain is now 5/0-10, it is tolerable. Call light is within reach, will continue to monitor.
[2019-09-08] MEDS: ATORVASTATIN 20 MG TAB PO SCH (22:53)
[2019-09-09] MEDS: ONDANSETRON HCL 4 MG/2 ML VIAL IV PRN (01:34)
[2019-09-09] MEDS: MORPHINE SULF INJ 2 MG/ML SYRINGE 1ML IV PRN (01:34)
--- NOTE | 2019-09-09 01:34 | NUR ---
Patient is complaining of pain 8/0-10 to the left hip. Morphine and Zofran administered as ordered. Will reassess.
--- NOTE | 2019-09-09 02:12 | NUR ---
PAIN REASSESSMENT Patient is now resting in bed asleep, no S/S of pain noted. Call light is within reach, will continue to monitor.
[2019-09-09] MEDS: SODIUM CHLORIDE 0.9% 1,000 ML IV SCH ×2 (04:38→11:30)
[2019-09-09 06:00] VITALS: BP 104/50
[2019-09-09] MEDS: InsuLIN REG 1unit/0.01ml Soln (100units/ml) SC SCH ×4 (06:21→22:41)
[2019-09-09] MEDS: ACCU-CHEK COMFORT CURVE STRIP VI SCH ×4 (06:22→22:00)
[2019-09-09] MEDS: RIOCIGUAT BASE PO SCH ×3 (06:35→22:40)
[2019-09-09] MEDS: LEVOTHYROXINE SODIUM 100 MCG TAB PO SCH (06:36)
[2019-09-09 07:16] LABS: Basophils # (auto) 0.1 10 ^3/uL (0-0.2); Basophils % (auto) 0.8 % (0.0-2.0); Eosinophils # (auto) 0.2 10 ^3/uL (0-0.8); Eosinophils % (auto) 2.3 % (0.0-7.0); Hematocrit 33.3 % (36.0-46.0); Hemoglobin 11.4 g/dL (12.2-16.2); Lymphocytes # (auto) 1.2 10 ^3/uL (0.4-5.4); Lymphocytes % (auto) 13.3 % (10.0-50.0); Mean Corpuscular Hemoglobin 28.7 pg (28.0-32.0); Mean Corpuscular Hgb Conc. 34.4 g/dL (32.0-36.0); Mean Corpuscular Volume 83.4 fL (80.0-100.0); Monocytes % (auto) 11.7 % (0.0-12.0); Neutrophils # (auto) 6.3 10 ^3/uL (1.6-8.6); Neutrophils % (auto) 71.9 % (37.0-80.0); Platelet Count (auto) 201 10^3/uL (140-450); Red Blood Cells 3.99 10^6/uL (4.0-5.20); Red Cell Distribution Width 13.2 % (11.8-14.3); White Blood Cell 8.8 10^3/uL (4.4-10.8)
[2019-09-09 07:31] LABS: Potassium 4.5 mmol/L (3.5-5.1)
[2019-09-09 07:35] LABS: BUN/Creatinine Ratio 26.4; Calcium 8.5 mg/dL (8.5-10.1)
[2019-09-09 09:00] VITALS: BP 102/44
[2019-09-09] MEDS: LEVOBUNOLOL 0.5% OP SCH ×2 (09:47→22:40)
[2019-09-09] MEDS: traMADol HCL 50 MG TAB PO PRN ×2 (09:56→19:40)
--- NOTE | 2019-09-09 10:00 | NUR ---
PAIN PT VERBALIZED PAIN ON HER LEFT HIP. PT WAS GIVEN TRAMADOL, PO, ORDERED FOR PAIN. TOLERATED WELL.
[2019-09-09 13:00] VITALS: BP 98/42
[2019-09-09 14:00] LABS: BUN/Creatinine Ratio 24.2; Calcium 8.5 mg/dL (8.5-10.1); Potassium 4.5 mmol/L (3.5-5.1)
[2019-09-09 14:59] LABS: Creatinine, Urine 112 mg/dL (30.0-125.0); Sodium Urine 24 mmol/L (40-220)
[2019-09-09] MEDS ORDERED: SODIUM CHL 3% 120 ML IV ONE ×2 (15:00→15:15)
--- NOTE | 2019-09-09 15:07 | NUR ---
SPOKE TO NELLA PT'S DAUGHTER STATUS UPDATE GIVEN
--- NOTE | 2019-09-09 15:09 | NUR ---
PT NOTES PT RESTING IN BED. DENIES ANY PAIN AT THIS TIME SINCE TRAMADOL WAS GIVEN THIS MORNING. VERBALIZED COMFORT.
--- NOTE | 2019-09-09 15:41 | NUR ---
Est energy needs 4788-8794 kcal (20-22kcal/kg BW 80.1kg) Est protein needs 48-60g (0.6-0.75g/kg BW 80.1kg, r/t elevated RFT) will reassess prn Addendum: 09/09/19 at [address] Amended: Links added. Addendum: 09/09/19 at [address] Consider adding MVI and Vit C 500mg BID for wound healing
[2019-09-09 17:00] VITALS: BP 104/51
[2019-09-09] MEDS: LISINOPRIL 20 MG TAB PO SCH (17:52)
[2019-09-09] MEDS: INSULIN LANTUS (GLARGINE) 1 /0.01ml (100units/ml) SC SCH (17:56)
--- NOTE | 2019-09-09 18:07 | NUR ---
WOUND CARE PT'S SACRAL WOUND CLEANED AND DRESSED ORDERED. PT ABLE TO TURN ON HER LEFT SIDE WHILE USING A PILLOW IN BETWEEN HER LEGS. PT TOLERATED ACTIVITY VERY WELL AND DENIED PAIN FROM MOVEMENT. MODERATE DRAINAGE ON OLD DRESSING NOTED. THERE'S ALSO SOME BLEEDING NOTED ON THE WOUND DURING THIS TIME.
--- NOTE | 2019-09-09 19:25 | NUR ---
Opening Shift Note Assumed care of patient, awake and alert x4. No S/S of distress/SOB or pain. Gutierrez is in place and hung below bladder, draining yellow urine. Call light is within reach, side rails up x2, bed is in the lowest position. Instructed on POC and to call for assist PRN, will continue to monitor for changes Q1hr and PRN.
--- NOTE | 2019-09-09 19:40 | NUR ---
PAIN Patient is complaining of pain to the left leg, 9/0-10. Patient states the tramadol works just as good as the morphine, tramadol administered as ordered for pain. Will reassess.
--- NOTE | 2019-09-09 20:30 | NUR ---
Blanchable redness noted to the back during the physical assessment, patient repositioned to the right side with the assistance of a pillow. Call light is within reach, will continue to monitor.
[2019-09-09 22:00] VITALS: BP 112/49
[2019-09-09] MEDS: ATORVASTATIN 20 MG TAB PO SCH (22:40)
[2019-09-10 00:06] LABS: BUN/Creatinine Ratio 25.2; Calcium 8.3 mg/dL (8.5-10.1); Potassium 4.8 mmol/L (3.5-5.1)
[2019-09-10 05:00] VITALS: BP 105/49
[2019-09-10] MEDS: MORPHINE SULF INJ 2 MG/ML SYRINGE 1ML IV PRN (05:40)
--- NOTE | 2019-09-10 05:40 | NUR ---
Patient is complaining of pain 8/0-10, morphine administered as ordered, will reassess.
[2019-09-10] MEDS: RIOCIGUAT BASE PO SCH ×3 (06:00→21:31)
--- NOTE | 2019-09-10 06:00 | NUR ---
CHG wipes completed, complete linen change done, patient repositioned for comfort with call light in reach.
[2019-09-10 06:35] LABS: INR 1.11 (0.9-1.15); Partial Thromboplastin Time 31.6 sec (23.64-32.05); Potassium 4.8 mmol/L (3.5-5.1)
--- NOTE | 2019-09-10 06:40 | NUR ---
Patient states pain is completely gone, will continue to monitor.
[2019-09-10 06:44] LABS: Albumin 2.5 g/dL (3.4-5.0); BUN/Creatinine Ratio 25.9; Bilirubin, Total 0.6 mg/dL (0.2-1.0); Calcium 8.7 mg/dL (8.5-10.1); Total Protein 5.4 g/dL (6.4-8.2)
--- NOTE | 2019-09-10 06:50 | NUR ---
IV insertion TO RFA IV access obtained, via clean sterile technique by inserting 22 gauge catheter at RFA after 3 attempt(s). IV secured properly. No trauma to site. Patient tolerated well. IV removal from LFA due to complaints of pain. IV DC'd with clean sterile technique, catheter fully intact. Pressure dressing applied to site. Patient tolerated well.
[2019-09-10] MEDS: InsuLIN REG 1unit/0.01ml Soln (100units/ml) SC SCH ×4 (07:00→21:34)
[2019-09-10] MEDS: LEVOTHYROXINE SODIUM 100 MCG TAB PO SCH (07:00)
[2019-09-10] MEDS ORDERED: BUPIVACAINE W/ EPINEPH 0.25% INJ 50ML MDV ONE (07:03)
[2019-09-10] MEDS ORDERED: VANCOMYCIN HCL 1000 MG VL ONE (07:04)
[2019-09-10] MEDS ORDERED: TRANEXAMIC ACID 20 ML ONE (07:05)
--- NOTE | 2019-09-10 07:12 | NUR ---
Patient taken down to pre-op accompanied by two staff members. Hard chart is with patient.
[2019-09-10] MEDS ORDERED: MORPHINE SULF(PF) 0.5MG/ML 10ML VIAL ONE (07:17)
[2019-09-10] MEDS ORDERED: KETOROLAC TROMETH 30 MG/ML 1ML VIAL ONE (07:18)
[2019-09-10] MEDS ORDERED: ceFAZolin 1GM/50ML 100 ML IV ONE (07:19)
[2019-09-10] MEDS: ACCU-CHEK COMFORT CURVE STRIP VI SCH ×4 (07:19→21:32)
[2019-09-10] MEDS ORDERED: LIDOCAINE 1% (LOCAL ANESTH.) PF 5ml SDV ONE (07:32)
[2019-09-10] MEDS ORDERED: SUCCINYLCHOLINE CHLORIDE 20 MG/ML 10ML VIAL IV ONE (07:32)
[2019-09-10] MEDS ORDERED: MIDAZOLAM HCL 1MG/1ML-2 ML VIAL ONE (07:35)
[2019-09-10] MEDS ORDERED: METOCLOPRAMIDE HCL 5MG/ml INJ 2ml VIAL ONE (07:36)
[2019-09-10] MEDS ORDERED: ETOMIDATE (2MG/ML) 20ML VIAL IV ONE (07:40)
[2019-09-10] MEDS ORDERED: ROCURONIUM 10MG/ML 10ML VIAL IV ONE (07:40)
--- NOTE | 2019-09-10 07:40 | NUR ---
PATIENT IN OR FOR SURGERY AT THIS TIME.
[2019-09-10] MEDS ORDERED: ACCU-CHEK COMFORT CURVE STRIP VI ONE (08:15)
[2019-09-10] MEDS ORDERED: ONDANSETRON HCL 4 MG/2 ML VIAL IV PRN (08:15)
[2019-09-10] MEDS ORDERED: HYDROmorphone HCL 2 MG/ML VL IV PRN ×2 (08:15)
[2019-09-10] MEDS ORDERED: NALOXONE HCL 0.4 MG/ML VIAL IV PRN (08:15)
[2019-09-10] MEDS ORDERED: ePHEDrine SULFATE 50 MG/ML AMP IV PRN (08:15)
[2019-09-10] MEDS ORDERED: fentaNYL CITRATE 100 MCG/2 ML VL ONE (08:28)
[2019-09-10] MEDS ORDERED: NEOSTIGMINE 1 MG/ML INJ (10mg/10ML VIAL) ONE (08:55)
[2019-09-10] MEDS ORDERED: GLYCOPYRROLATE 0.2 MG/ML 1ML VIAL ONE (08:55)
[2019-09-10] MEDS ORDERED: ceFAZolin 1GM/50ML 50 ML IV SCH (09:00)
--- NOTE | 2019-09-10 10:00 | NUR ---
PATIENT RETURNED FROM SURGERY PER BED ACCOMPANIED BY REHAB OFFICE COORDINATOR. REPORT RECEIVED BY PHONE AND AT BEDSIDE. PATIENT HAD HER EYES CLOSED BUT OPENED THEM WHEN SPOKEN TO PATIENT ORIENTED X3, VOICED NO C/O PAIN AND WAS IN NO RESPIRATORY DISTRESS. PATIENT ON O2 AT 2L/NC. WOUND VAC TO LEFT HIP NOTED AND NO DRAINAGE NOTED AT THIS TIME. CAMPBELL CATHETER DRAINING CLOUDY YELLOW URINE. SHIFT ASSESSMENT DONE AND CHARTED. PLAN OF CARE, MEDS, TREATMENTS AND SAFETY DISCUSSED WITH PATIENT. WILL CONTINUE TO MONITOR PATIENT.
[2019-09-10 10:30] VITALS: BP_SYST 107; BP_SYST 92; BP_DIAS 47; BP_DIAS 60
--- NOTE | 2019-09-10 10:50 | NUR ---
DISCHARGE INSTRUCTIONS GIVEN TO PATIENT AND PATIENT VERBALIZED UNDERSTANDING. WAITING FOR PATIENT'S TRANSPORT AT THIS TIME. Addendum: 09/10/19 at 1926 by Luis Verma RN WRONG PATIENT
[2019-09-10 13:00] VITALS: BP 92/47
--- NOTE | 2019-09-10 13:00 | NUR ---
UNABLE TO OBTAIN TEMP. DURING 1300 VITALS . RN MADE AWARE .
[2019-09-10] MEDS: LEVOBUNOLOL 0.5% OP SCH ×2 (13:50→21:31)
[2019-09-10] MEDS: traMADol HCL 50 MG TAB PO PRN (13:52)
[2019-09-10] MEDS: ceFAZolin 1GM/50ML 50 ML IV SCH ×2 (15:02→21:14)
[2019-09-10] MEDS: ENOXAPARIN SOD 40 MG/0.4 ML SYRINGE SC SCH (15:02)
[2019-09-10 16:45] VITALS: BP 99/41
[2019-09-10 16:53] VITALS: BP 41/41
[2019-09-10] MEDS: INSULIN LANTUS (GLARGINE) 1 /0.01ml (100units/ml) SC SCH (17:26)
[2019-09-10] MEDS: LISINOPRIL 20 MG TAB PO SCH (17:35)
--- NOTE | 2019-09-10 19:20 | NUR ---
Opening Shift Note Assumed care of patient, awake and alert x4. No S/S of distress/SOB or pain. Dressing to left hip is C/D/I, small portable wound vac present to dressing site, no drainage noted. Gutierrez is in place and draining yellow urine, hung below bladder. Call light is within reach, side rails up x2, bed is in the lowest position. Instructed on POC and to call for assist PRN, will continue to monitor for changes Q1hr and PRN.
--- NOTE | 2019-09-10 19:26 | NUR ---
PATIENT TOOK DIET AND FLUIDS WELL. NO C/O PAIN/ DISCOMFORT VOICED BY PATIENT AT THIS TIME. REPORT GIVEN TO JOE WHALEN.
[2019-09-10] MEDS: ATORVASTATIN 20 MG TAB PO SCH (21:31)
[2019-09-10 22:00] VITALS: BP 97/46
[2019-09-11] MEDS: ceFAZolin 1GM/50ML 50 ML IV SCH (03:20)
[2019-09-11 05:00] VITALS: BP 92/29
[2019-09-11] MEDS: LEVOTHYROXINE SODIUM 100 MCG TAB PO SCH (06:22)
[2019-09-11] MEDS: RIOCIGUAT BASE PO SCH ×3 (06:22→22:00)
[2019-09-11] MEDS: InsuLIN REG 1unit/0.01ml Soln (100units/ml) SC SCH ×4 (06:23→22:00)
[2019-09-11] MEDS: ACCU-CHEK COMFORT CURVE STRIP VI SCH ×4 (06:23→22:00)
--- NOTE | 2019-09-11 07:28 | NUR ---
Report given to Steffi WHALEN Patient is resting in bed, no S/S of pain or distress noted. Dressing to left hip is C/D/I. Call light is within reach.
[2019-09-11 07:46] LABS: Hematocrit 21.4 % (36.0-46.0); Hemoglobin 7.3 g/dL (12.2-16.2)
[2019-09-11 08:11] LABS: Albumin 2.1 g/dL (3.4-5.0); BUN/Creatinine Ratio 21.6; Calcium 8.2 mg/dL (8.5-10.1)
[2019-09-11 08:14] LABS: Bilirubin, Total 0.5 mg/dL (0.2-1.0); Total Protein 4.6 g/dL (6.4-8.2)
--- NOTE | 2019-09-11 08:30 | NUR ---
OPENING SHIFT NOTE: PATIENT AWAKE RESTING IN BED. A/OX4 WITH MILD FORGETFULNESS, PATIENT COULDN'T REMEMBER WHAT COLLEGE HER DAUGHTER WAS GOING TO ATTEND. RESPIRATIONS EVEN AND UNLABORED. LUNG SOUND CLEAR. CAMPBELL HUNG BELOW BLADDER FREE OF KINKS. MINI PORTABLE WOUND VAC NOTED NO DRAINAGE AND WORKING PROPERLY, INCISION TO LEFT HIP CDI. PATIENT UPDATED ON PLAN OF CARE AND ADDRESSED CONCERNS. CALL LIGHT AND PERSONAL BELONGINGS PLACED WITHIN REACH, FALL PRECAUTIONS IN PLACE. WILL CONTINUE TO MONITOR.
--- NOTE | 2019-09-11 08:49 | NUR ---
MD Paola MASSEY AT BEDSIDE. PATIENT REQUESTING TO GO HOME WITH HOME HEALTH RATHER THAN SNF.
[2019-09-11 09:00] VITALS: BP 95/34
[2019-09-11] MEDS: LEVOBUNOLOL 0.5% OP SCH ×2 (09:44→22:00)
[2019-09-11] MEDS: ENOXAPARIN SOD 40 MG/0.4 ML SYRINGE SC SCH (09:45)
[2019-09-11] MEDS: traMADol HCL 50 MG TAB PO PRN ×2 (09:46→14:37)
--- NOTE | 2019-09-11 10:41 | NUR ---
PHYSICAL THERAPIST YVETTE AT BEDSIDE.
--- NOTE | 2019-09-11 11:37 | NUR ---
MD MADE AWARE OF BP AND C/O DIZZINESS WITH PHYSICAL THERAPIST. ORDERS RECEIVED.
[2019-09-11] MEDS ORDERED: SODIUM CHLORIDE 0.9% 1,000 ML IV ONE (11:45)
--- NOTE | 2019-09-11 12:05 | NUR ---
NEW IV: PIV 22G PLACED IN THE LEFT FOREARM.
[2019-09-11 13:00] VITALS: BP 92/40
[2019-09-11] MEDS ORDERED: SODIUM CHL 3% 200 ML IV ONE (14:45)
--- NOTE | 2019-09-11 15:30 | NUR ---
CAMPBELL: PATIENT REFUSING TO HAVE CAMPBELL REMOVED AT THIS TIME. PATIENT FEARFUL OF TURING AND USING BEDPAN TO URINATE. PATIENT STATES, "MAYBE TOMORROW I CAN USE A COMMODE IF I AM STRONGER."
[2019-09-11 17:00] VITALS: BP 105/38
[2019-09-11] MEDS: INSULIN LANTUS (GLARGINE) 1 /0.01ml (100units/ml) SC SCH (17:59)
--- NOTE | 2019-09-11 18:53 | NUR ---
CARE ENDORSED TO NOC RN.
[2019-09-11 22:00] VITALS: BP 97/34
[2019-09-11] MEDS: ATORVASTATIN 20 MG TAB PO SCH (22:41)
[2019-09-12] VITALS (8 sets, daily range): BP systolic 84–100; BP diastolic 31–46
[2019-09-12] MEDS: RIOCIGUAT BASE PO SCH ×3 (06:00→20:29)
[2019-09-12 06:43] LABS: Hematocrit 18.8 % (36.0-46.0)
[2019-09-12] MEDS: LEVOTHYROXINE SODIUM 100 MCG TAB PO SCH (06:43)
[2019-09-12] MEDS: ACCU-CHEK COMFORT CURVE STRIP VI SCH ×4 (06:48→20:29)
[2019-09-12] MEDS: InsuLIN REG 1unit/0.01ml Soln (100units/ml) SC SCH ×4 (06:49→21:17)
[2019-09-12 07:00] LABS: Hemoglobin 6.5 g/dL (12.2-16.2)
[2019-09-12 07:04] LABS: BUN/Creatinine Ratio 23.2; Bilirubin, Total 0.5 mg/dL (0.2-1.0); Calcium 8.3 mg/dL (8.5-10.1); Total Protein 4.7 g/dL (6.4-8.2)
--- NOTE | 2019-09-12 07:12 | NUR ---
Received critical hgb 6.5 from Baudilio Estes in lab. Paged Dr. Botello who immediately called back and gave order to T&C to give i unit prbcs. Day shift RN notified as orders entered into EMR.
[2019-09-12] MEDS: traMADol HCL 50 MG TAB PO PRN ×2 (09:44→22:17)
[2019-09-12] MEDS: LEVOBUNOLOL 0.5% OP SCH ×2 (09:44→20:28)
[2019-09-12] MEDS ORDERED: ENOXAPARIN SOD 30 MG/0.3 ML SYRINGE SC SCH (10:00)
--- NOTE | 2019-09-12 14:45 | NUR ---
Nutrition Followup Note Wt 84.2kg Pt was alert and oriented at time of rounds. pt reports appetite is minimal, pt intake is fair aeb pt with 60% avg po intake x 3 days per RN note. Will continue to monitor po intake. Est energy needs 0438-3336 kcal (20-22kcal/kg BW 80.1kg) Est protein needs 48-60g (0.6-0.75g/kg BW 80.1kg, r/t elevated RFT) will reassess prn Labs: BUN 44H, Creat 1.90H, Alb 2.0L, Ca 8.3L BM: Pt with no BMs noted per RN note, pt const since 09/04 per pt Skin: BS 14 mod risk, wound on sacrum, incision on hip, full details in manager home healthcare note PES: Overweight r/t caloric intake in excess of needs aeb pt with a BMI of 29.4 kg/m2 Altered nutrition related labs r/t current and chronic medical condition aeb elevated RFTs, hyperglycemia Comments 1) Continue to monitor po intake, labs, skin 2) Refer pt to OPD on dc 3) Continue current plan of care Consider Renal Specific 60g protein, CCHO 60g Expected Outcomes/Goals: 1) pt po intake >75% 2) pt labs to improve 3) f/u 3-5 days
--- NOTE | 2019-09-12 16:40 | NUR ---
Pt is receiving blood transfusion. Will attempt PT in the morning. Educated pt on performed therex in bed tonight, she verbalized understanding and agreement.
[2019-09-12] MEDS ORDERED: levoFLOXacin 500MG 100 ML IV ONE (17:00)
[2019-09-12] MEDS: INSULIN LANTUS (GLARGINE) 1 /0.01ml (100units/ml) SC SCH (18:08)
[2019-09-12] MEDS: ATORVASTATIN 20 MG TAB PO SCH (20:11)
[2019-09-12] MEDS: MEROPENEM 500MG IVPB 50 ML IV SCH (21:07)
[2019-09-13] MEDS: MEROPENEM 500MG IVPB 50 ML IV SCH (05:47)
[2019-09-13] MEDS: LEVOTHYROXINE SODIUM 100 MCG TAB PO SCH (05:49)
[2019-09-13] MEDS: RIOCIGUAT BASE PO SCH ×3 (05:49→20:34)
[2019-09-13] MEDS: InsuLIN REG 1unit/0.01ml Soln (100units/ml) SC SCH ×4 (05:53→20:35)
[2019-09-13] MEDS: ACCU-CHEK COMFORT CURVE STRIP VI SCH ×4 (05:53→20:35)
[2019-09-13 06:23] VITALS: BP 112/41
--- NOTE | 2019-09-13 06:30 | NUR ---
Wound care done to sacrum pressure ulcer.
[2019-09-13] MEDS: LACTULOSE 20Gm/30ML SOLN PO PRN (06:44)
[2019-09-13 07:19] LABS: Basophils # (auto) 0.1 10 ^3/uL (0-0.2); Eosinophils # (auto) 0.1 10 ^3/uL (0-0.8); Hematocrit 21.7 % (36.0-46.0); Hemoglobin 7.3 g/dL (12.2-16.2); Mean Corpuscular Hemoglobin 28.2 pg (28.0-32.0); Red Cell Distribution Width 13.8 % (11.8-14.3)
[2019-09-13 07:20] LABS: Basophils % (auto) 0.6 % (0.0-2.0); Eosinophils % (auto) 1.1 % (0.0-7.0); Lymphocytes # (auto) 0.7 10 ^3/uL (0.4-5.4); Lymphocytes % (auto) 6.3 % (10.0-50.0); Mean Corpuscular Hgb Conc. 33.4 g/dL (32.0-36.0); Mean Corpuscular Volume 84.7 fL (80.0-100.0); Monocytes # (auto) 1.2 10 ^3/uL (0-1.3); Monocytes % (auto) 10.2 % (0.0-12.0); Neutrophils # (auto) 9.6 10 ^3/uL (1.6-8.6); Neutrophils % (auto) 81.8 % (37.0-80.0); Platelet Count (auto) 179 10^3/uL (140-450); Red Blood Cells 2.57 10^6/uL (4.0-5.20); White Blood Cell 11.8 10^3/uL (4.4-10.8)
[2019-09-13] MEDS: levoFLOXacin 250MG 50 ML IV SCH (08:50)
[2019-09-13] MEDS: LEVOBUNOLOL 0.5% OP SCH ×2 (08:50→20:32)
[2019-09-13 09:00] VITALS: BP 112/45
--- NOTE | 2019-09-13 09:53 | NUR ---
pt sitting in chair bedside
[2019-09-13] MEDS: FUROSEMIDE 40 MG/4 ML VIAL IV SCH (12:15)
--- NOTE | 2019-09-13 12:25 | NUR ---
md camejo rounded on patient plan for discharge tomorrow with home pt
[2019-09-13 13:00] VITALS: BP 109/45
--- NOTE | 2019-09-13 14:00 | NUR ---
Pt was returned to bed from chair. Pt continues to require max assist and has difficulty getting into upright position using FWW. I discussed with pt my concerns for her discharging home with family and risk of falls due to significant physical assistance that will be required by family. Pt verbalized understanding.
--- NOTE | 2019-09-13 16:22 | NUR ---
Pt is an alert and oriented female that resided with spouse and functioned independently prior to admission. Pt has a fww and wheelchair in the home. Pt will be returning home upon discharge and will be assisted by her spouse as well as her daughter that will be staying with pt. Pt will need home health for physical therapy upon discharge. Pts family to provide transportation home upon discharge. Will continue to monitor and provide intervention as needed. Addendum: 09/13/19 at 1622 by АННА KRAMER SS Amended: Links added.
[2019-09-13 17:00] VITALS: BP 112/48
[2019-09-13] MEDS: traMADol HCL 50 MG TAB PO PRN ×2 (17:20→22:44)
[2019-09-13] MEDS: INSULIN LANTUS (GLARGINE) 1 /0.01ml (100units/ml) SC SCH (17:21)
--- NOTE | 2019-09-13 19:37 | NUR ---
Patient had no bowel movement since admission, paged Hospitalist.
--- NOTE | 2019-09-13 19:50 | NUR ---
Received call from Dr. Blevins, new order received for Colace 100mg po bid and Lactulose 30 ml po q6hrs as needed for constipation. Order noted and carried out. Patient made aware of new orders.
[2019-09-13] MEDS ORDERED: LACTULOSE 20Gm/30ML SOLN PO PRN (20:00)
[2019-09-13] MEDS: ATORVASTATIN 20 MG TAB PO SCH (20:31)
[2019-09-13] MEDS: DOCUSATE SOD 100 MG CAP PO SCH (20:31)
--- NOTE | 2019-09-14 00:05 | NUR ---
Patient had large dark brown emesis. No bowel movement as of this time. V/S stable, 98.9, 129/49, 97% RA, RR 20. Called Hospitalist and notified.
--- NOTE | 2019-09-14 00:14 | NUR ---
Hospitalist called back with new order for tap water enema. Order noted.
--- NOTE | 2019-09-14 00:48 | NUR ---
Tap water enema given, awaiting result. Addendum: 09/14/19 at 0607 by KEM TRAN RN Patient had medium bowel movement, brown, soft.
[2019-09-14] MEDS: LEVOTHYROXINE SODIUM 100 MCG TAB PO SCH (05:36)
[2019-09-14] MEDS: ACCU-CHEK COMFORT CURVE STRIP VI SCH ×2 (05:44→11:23)
[2019-09-14] MEDS: RIOCIGUAT BASE PO SCH ×2 (05:44→13:09)
[2019-09-14] MEDS: InsuLIN REG 1unit/0.01ml Soln (100units/ml) SC SCH ×2 (05:44→11:23)
[2019-09-14 05:58] VITALS: BP 115/44
--- NOTE | 2019-09-14 06:08 | NUR ---
Pressure ulcer on sacrum: Dressing changed as ordered.
--- NOTE | 2019-09-14 07:26 | NUR ---
Opening Shift Note Assumed care of patient, awake and alert. No S/S of distress/SOB or pain. Instructed on POC and to call for assist PRN, will continue to monitor for changes Q1hr and PRN.
[2019-09-14 07:47] LABS: Eosinophils # (auto) 0.2 10 ^3/uL (0-0.8); Eosinophils % (auto) 1.8 % (0.0-7.0); Hematocrit 22.6 % (36.0-46.0); Monocytes # (auto) 1.3 10 ^3/uL (0-1.3); Nucleated Red Blood Cells % 0.1 %
[2019-09-14 07:49] LABS: Basophils # (auto) 0.1 10 ^3/uL (0-0.2); Basophils % (auto) 0.6 % (0.0-2.0); Hemoglobin 7.7 g/dL (12.2-16.2); Lymphocytes # (auto) 0.9 10 ^3/uL (0.4-5.4); Lymphocytes % (auto) 7.5 % (10.0-50.0); Mean Corpuscular Hemoglobin 28.4 pg (28.0-32.0); Mean Corpuscular Hgb Conc. 34.2 g/dL (32.0-36.0); Monocytes % (auto) 10.7 % (0.0-12.0); Neutrophils # (auto) 9.4 10 ^3/uL (1.6-8.6); Neutrophils % (auto) 79.4 % (37.0-80.0); Platelet Count (auto) 243 10^3/uL (140-450); Red Blood Cells 2.72 10^6/uL (4.0-5.20); Red Cell Distribution Width 13.7 % (11.8-14.3); White Blood Cell 11.9 10^3/uL (4.4-10.8)
[2019-09-14 08:05] LABS: Albumin 2.1 g/dL (3.4-5.0); BUN/Creatinine Ratio 28.7
[2019-09-14 08:07] LABS: Total Protein 5.1 g/dL (6.4-8.2)
[2019-09-14 09:00] VITALS: BP 107/36
[2019-09-14] MEDS: FUROSEMIDE 40 MG/4 ML VIAL IV SCH (09:18)
[2019-09-14] MEDS: LEVOBUNOLOL 0.5% OP SCH (09:18)
[2019-09-14] MEDS: DOCUSATE SOD 100 MG CAP PO SCH (09:18)
[2019-09-14] MEDS: levoFLOXacin 250MG 50 ML IV SCH (09:18)
[2019-09-14] MEDS: traMADol HCL 50 MG TAB PO PRN (09:19)
[2019-09-14] MEDS: LACTULOSE 20Gm/30ML SOLN PO PRN (09:19)
[2019-09-14 13:00] VITALS: BP 118/55
--- NOTE | 2019-09-14 13:23 | NUR ---
SPOKE WITH AGUILA ACE REGARDING DISCHARGE HOME HEALTH AGUILA IS WORKING ON IT
--- NOTE | 2019-09-14 13:48 | NUR ---
Home Health The patient prefers to use [facility] upon discharge. I informed TATI Sandoval of this request.
--- NOTE | 2019-09-14 14:00 | NUR ---
re-assessment Per Nabeel WHALEN he asked patient if she had a preference on what home health company she wanted to use. Per Nabeel patient informed him she wants [facility]. order has been sent to [facility]. Per Raman service will start 09/15/2019. Nabeel WHALEN has been notified as well as patient. Addendum: 09/14/19 at 1403 by Teagan DUFFY Amended: Links added.
--- NOTE | 2019-09-14 14:35 | NUR ---
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
--- NOTE | 2019-09-14 16:13 | NUR ---
PT DISCHARGED HOME PHYSICAL THERAPY TO ASSIST PT IN CAR IV REMOVED TELE BOX SENT BACK TO ROOM
== END 2019-09-14 16:36 | disposition home health service (06) | DRG 469 ==
LOC: ER 07:17 → TELE 07:18 → TELE-WESTW 09-08 04:20
PROVIDERS: ADMIT Internal Medicine; ATTEND Family Medicine
PROC: 0QSPXZZ Reposition Left Metatarsal, External Approach (ICD-10-PCS; 2019-09-10)
PROC: 0SRS0JZ Replacement of Left Hip Joint, Femoral Surface with Synthetic Substitute, Open Approach (ICD-10-PCS; principal; 2019-09-10 07:30)
PROC: 30233N1 Transfusion of Nonautologous Red Blood Cells into Peripheral Vein, Percutaneous Approach (ICD-10-PCS; 2019-09-12)
DX: S72.012A Unspecified intracapsular fracture of left femur, initial encounter for closed fracture (principal); I50.23 Acute on chronic systolic (congestive) heart failure; N17.9 Acute kidney failure, unspecified; E87.1 Hypo-osmolality and hyponatremia; I13.0 Hypertensive heart and chronic kidney disease with heart failure and stage 1 through stage 4 chronic kidney disease, or unspecified chronic kidney disease; N39.0 Urinary tract infection, site not specified; N18.3 Chronic kidney disease, stage 3 (moderate); K57.90 Diverticulosis of intestine, part unspecified, without perforation or abscess without bleeding; E78.5 Hyperlipidemia, unspecified; I48.91 Unspecified atrial fibrillation; E11.22 Type 2 diabetes mellitus with diabetic chronic kidney disease; B96.20 Unspecified Escherichia coli [E. coli] as the cause of diseases classified elsewhere; E03.9 Hypothyroidism, unspecified; I25.10 Atherosclerotic heart disease of native coronary artery without angina pectoris; D64.9 Anemia, unspecified; W01.0XXA Fall on same level from slipping, tripping and stumbling without subsequent striking against object, initial encounter; M19.90 Unspecified osteoarthritis, unspecified site; B96.5 Pseudomonas (aeruginosa) (mallei) (pseudomallei) as the cause of diseases classified elsewhere; I27.20 Pulmonary hypertension, unspecified; M85.80 Other specified disorders of bone density and structure, unspecified site; Z95.2 Presence of prosthetic heart valve; Y93.89 Activity, other specified; Y92.89 Other specified places as the place of occurrence of the external cause; Y99.8 Other external cause status; Z79.4 Long term (current) use of insulin; Z82.49 Family history of ischemic heart disease and other diseases of the circulatory system; Z82.5 Family history of asthma and other chronic lower respiratory diseases; Z95.1 Presence of aortocoronary bypass graft; Z20.828 Contact with and (suspected) exposure to other viral communicable diseases; S92.352A Displaced fracture of fifth metatarsal bone, left foot, initial encounter for closed fracture
CPT/HCPCS: 36415; 51702; 71045; 72170; 72192; 73502; 73562; 73610; 73630; 80048; 80053; 81001; 82306; 82570; 82962; 83036; 83880; 83935; 83970; 84100; 84300; 85014; 85018; 85025; 85610; 85730; 86850; 86900; 86901; 86920; 87081; 87086; 87088; 87186; 93005; 93970; 96374; 96375; 96376; 97110; 97116; 97163; 97530; 99291; C1776; G0378; J0330; J0690; J1815; J1885; J1956; J2185; J2250; J2405

== ENCOUNTER → 2019-09-15 | Emergency (ER) | payer MEDICARE, OTHER ==
[~2019-09-15] VITALS: Ht 165.1 cm; Wt 81.6 kg
[~2019-09-15] MED LIST changes: -ACET-1158 PO; -AMLO10TA13 PO; +AMOX500T3 PO; -ATOR10TA52 PO; +ATOR20TA50 PO; +DICL1GEL50 TD; -FURO20TA3 PO; +FURO40TA4 PO; +HYDROcodone-ACET 5/325MG TAB PO ONE; +LISI-646 PO; +MACI1TAB2 PO; +MORPHINE SULF INJ 2 MG/ML SYRINGE 1ML IV PRN; +MULT-1058 PO; +ONDANSETRON HCL 4 MG/2 ML VIAL IV PRN; -POTA99TA3 PO; +RIOC1TAB5 PO; +cefTRIAXone 1GM/50ML D5W 50 ML IV ONE
[2019-09-15 11:51] LABS: Basophils # (auto) 0.1 10 ^3/uL (0-0.2); Basophils % (auto) 0.5 % (0.0-2.0); Eosinophils # (auto) 0.1 10 ^3/uL (0-0.8); Hemoglobin 8.1 g/dL (12.2-16.2); Lymphocytes # (auto) 1.1 10 ^3/uL (0.4-5.4); Mean Corpuscular Hgb Conc. 34.4 g/dL (32.0-36.0); Monocytes # (auto) 1.4 10 ^3/uL (0-1.3); Nucleated Red Blood Cells % 0.1 %
[2019-09-15 11:52] LABS: Eosinophils % (auto) 1.1 % (0.0-7.0); Hematocrit 23.6 % (36.0-46.0); Lymphocytes % (auto) 8.4 % (10.0-50.0); Mean Corpuscular Hemoglobin 28.3 pg (28.0-32.0); Mean Corpuscular Volume 82.5 fL (80.0-100.0); Monocytes % (auto) 10.9 % (0.0-12.0); Neutrophils % (auto) 79.1 % (37.0-80.0); Platelet Count (auto) 319 10^3/uL (140-450); Red Blood Cells 2.86 10^6/uL (4.0-5.20); Red Cell Distribution Width 13.7 % (11.8-14.3); White Blood Cell 12.7 10^3/uL (4.4-10.8)
[2019-09-15 12:08] LABS: Albumin 2.6 g/dL (3.4-5.0); Calcium 9.9 mg/dL (8.5-10.1); Potassium 4.6 mmol/L (3.5-5.1)
[2019-09-15 12:10] LABS: INR 1.14 (0.9-1.15); Partial Thromboplastin Time 28.2 sec (23.64-32.05)
[2019-09-15 12:15] LABS: BUN/Creatinine Ratio 29.4; Bilirubin, Total 1.8 mg/dL (0.2-1.0)
[2019-09-15 12:54] LABS: Urine Bacteria FEW /hpf (None Seen); Urine Blood TRACE /uL (Negative); Urine Hyaline Cast FEW /lpf (0 - 2); Urine Specific Gravity 1.009 (1.001-1.035); Urine WBC 1 /hpf (0 - 5)
--- NOTE | 2019-09-15 17:45 | NUR ---
Pt is an alert and oriented female that was discharged yesterday to home with her spouse, daughter, and home health. Pt states that she and her family are requesting SNF placement. Per pt and spouse they have no preference for the facility. Discussed local facilities of [facility], [facility], and [facility] and pt/spouse agreed. Contacted Jordon at [facility] and they are unable to take any negative COVID pts until they are cleared by [facility]. Contacted Karri at [facility] and they have no bed availability. Contacted Paulie at [facility] and they are requesting another COVID test. Discussed with spouse the need to look at a facility [facility] and he agreed. Contacted Manasa [facility] [address] [facility] [place] [address] and pt accepted for admission to room 225-C. The number for report is [phone] and the patient will be followed by Dr. Ryan. Transportation will be set up through [facility] ([phone]). Pt will be transported at 2000. Informed covering nurse, Tasha and charge nurse, Genesis.
[2019-09-15 19:45] VITALS: BP 128/52
== END | disposition home or self-care (01) ==
LOC: EDUNIT# 09:05 → ER 09:15 → EDBD 09:15
DX: G89.29 Other chronic pain (principal); I11.0 Hypertensive heart disease with heart failure; I50.43 Acute on chronic combined systolic (congestive) and diastolic (congestive) heart failure; E44.0 Moderate protein-calorie malnutrition; N39.0 Urinary tract infection, site not specified; M25.552 Pain in left hip; M25.551 Pain in right hip
CPT/HCPCS: 36415; 71045; 80053; 81001; 83880; 84484; 85025; 85610; 85730; 96365; 96366; 96375; 99285; J0696; J2270; J2405

== ENCOUNTER → 2019-12-15 | Outpatient (CLI) | payer MEDICARE, BC ==
[~2019-12-15] MED LIST changes: -HYDROcodone-ACET 5/325MG TAB PO ONE; -MORPHINE SULF INJ 2 MG/ML SYRINGE 1ML IV PRN; -ONDANSETRON HCL 4 MG/2 ML VIAL IV PRN; -cefTRIAXone 1GM/50ML D5W 50 ML IV ONE
== END | disposition home or self-care (01) ==
LOC: Rad HDHVI 09:01
PROVIDERS: ATTEND Internal Medicine Cardiovascular Disease
DX: I08.3 Combined rheumatic disorders of mitral, aortic and tricuspid valves (principal); I10 Essential (primary) hypertension; R00.2 Palpitations; I27.21 Secondary pulmonary arterial hypertension
CPT/HCPCS: 93306

== ENCOUNTER → 2019-12-20 | Outpatient (CLI) | payer MEDICARE, BC ==
[~2019-12-20] VITALS: Ht 30.5 cm; Wt 66.8 kg
[~2019-12-20] MED LIST changes: +CYANOCOBALAMIN (B-12) 1000 MCG/1 ML VIAL IM ONE; +CYANOCOBALAMIN (B-12) 1000 MCG/1 ML VIAL ONE
[2019-12-20 11:00] VITALS: BP 158/61
--- NOTE | 2019-12-20 11:00 | NUR ---
CLINIC PT ARRIVED TO THE CLINIC FOR SCHEDULED MONTHLY PAH EVAL, Kavita/MOOSE4, AMBULATORY WITH WALKER, BREATHING IS EVEN AND UNLABORED. PT HAS A 16.4 LB WT DECREASE SINCE VISIT ON 07/27/19
--- NOTE | 2019-12-20 11:11 | NUR ---
LABS DRAWN AND SENT
[2019-12-20 11:34] VITALS: BP 138/58
--- NOTE | 2019-12-20 11:34 | NUR ---
Discharge Instructions See e-MAR for any mediations given with this visit. Patient education given on disease process. Patient verbalized understanding. Previous labs reviewed. Patient discharged in stable condition with after care instructions and follow up appointment IN 1 MONTH. PT REFUSED TO DO 6MWT DO TO FRACTURE L FOOT. NOTE VIT B12 IM ADMIN BY AIYANA Silva DELTOID LOT# [id number] EXP 06/08
[2019-12-20 12:09] LABS: Basophils # (auto) 0.1 10 ^3/uL (0-0.2); Basophils % (auto) 0.8 % (0.0-2.0); Eosinophils # (auto) 0.3 10 ^3/uL (0-0.8); Eosinophils % (auto) 3.4 % (0.0-7.0); Hemoglobin 15.6 g/dL (12.2-16.2); Lymphocytes # (auto) 2.3 10 ^3/uL (0.4-5.4); Lymphocytes % (auto) 24.4 % (10.0-50.0); Mean Corpuscular Hemoglobin 28.7 pg (28.0-32.0); Mean Corpuscular Hgb Conc. 34.7 g/dL (32.0-36.0); Mean Corpuscular Volume 82.7 fL (80.0-100.0); Monocytes # (auto) 0.9 10 ^3/uL (0-1.3); Monocytes % (auto) 9.8 % (0.0-12.0); Neutrophils # (auto) 5.7 10 ^3/uL (1.6-8.6); Neutrophils % (auto) 61.6 % (37.0-80.0); Platelet Count (auto) 188 10^3/uL (140-450); Red Blood Cells 5.44 10^6/uL (4.0-5.20); Red Cell Distribution Width 12.5 % (11.8-14.3); White Blood Cell 9.3 10^3/uL (4.4-10.8)
[2019-12-20 13:11] LABS: Albumin 3.9 g/dL (3.4-5.0); BUN/Creatinine Ratio 30.8; Bilirubin, Total 0.8 mg/dL (0.2-1.0); Magnesium 2.6 mg/dL (1.6-2.6); Total Protein 7.8 g/dL (6.4-8.2)
== END | disposition home or self-care (01) ==
LOC: CHF HDHVI 10:47
PROVIDERS: ATTEND Internal Medicine Cardiovascular Disease
DX: I27.21 Secondary pulmonary arterial hypertension (principal); R53.83 Other fatigue; I10 Essential (primary) hypertension; Z79.899 Other long term (current) drug therapy
CPT/HCPCS: 36415; 80053; 82306; 83036; 83735; 85025; 96372; G0463; J3420

== ENCOUNTER → 2020-01-06 | Outpatient (CLI) | payer MEDICARE, BC ==
[~2020-01-06] MED LIST changes: -CYANOCOBALAMIN (B-12) 1000 MCG/1 ML VIAL IM ONE; -CYANOCOBALAMIN (B-12) 1000 MCG/1 ML VIAL ONE
[2020-01-06 10:27] LABS: Basophils # (auto) 0.1 10 ^3/uL (0-0.2); Basophils % (auto) 0.9 % (0.0-2.0); Eosinophils # (auto) 0.2 10 ^3/uL (0-0.8); Eosinophils % (auto) 2.6 % (0.0-7.0); Hematocrit 47.8 % (36.0-46.0); Lymphocytes # (auto) 1.9 10 ^3/uL (0.4-5.4); Lymphocytes % (auto) 21.8 % (10.0-50.0); Mean Corpuscular Hemoglobin 27.8 pg (28.0-32.0); Mean Corpuscular Hgb Conc. 33.5 g/dL (32.0-36.0); Mean Corpuscular Volume 83.2 fL (80.0-100.0); Monocytes # (auto) 0.7 10 ^3/uL (0-1.3); Monocytes % (auto) 7.6 % (0.0-12.0); Neutrophils # (auto) 5.9 10 ^3/uL (1.6-8.6); Neutrophils % (auto) 67.1 % (37.0-80.0); Nucleated Red Blood Cells % 0.2 %; Platelet Count (auto) 198 10^3/uL (140-450); Red Blood Cells 5.74 10^6/uL (4.0-5.20); White Blood Cell 8.8 10^3/uL (4.4-10.8)
[2020-01-06 11:05] LABS: Anion Gap 8 (5-15); Blood Urea Nitrogen 29 mg/dL (7-18); Calcium 10.1 mg/dL (8.5-10.1); Carbon Dioxide 26 mmol/L (21-32); Chloride 102 mmol/L (98-107); Glucose 211 mg/dL (74-106); Potassium 4.1 mmol/L (3.5-5.1); Sodium 136 mmol/L (136-145)
[2020-01-06 11:08] LABS: Alanine Aminotransferase 38 U/L (13-56); Alkaline Phosphatase 130 U/L (45-117); Aspartate Aminotransferase 31 U/L (15-37); BUN/Creatinine Ratio 19.9; Cholesterol 136 mg/dL (< 200); GFR African American 44 mL/min; GFR Non-African American 37 mL/min; HDL Cholesterol 59 mg/dL (40-59); LDL Cholesterol 68 mg/dL (< 100); Total Protein 8.1 g/dL (6.4-8.2); Triglycerides 92 mg/dL (< 150)
== END | disposition home or self-care (01) ==
LOC: LAB 09:55
PROVIDERS: ATTEND Physician Assistant
DX: E11.21 Type 2 diabetes mellitus with diabetic nephropathy (principal); I11.0 Hypertensive heart disease with heart failure; I50.42 Chronic combined systolic (congestive) and diastolic (congestive) heart failure
CPT/HCPCS: 36415; 80053; 80061; 82043; 83036; 85025

== ENCOUNTER → 2020-01-31 | Outpatient (CLI) | payer MEDICARE, BC ==
[2020-01-31 12:42] LABS: Albumin 3.6 g/dL (3.4-5.0); Calcium 9.6 mg/dL (8.5-10.1); Potassium 4.1 mmol/L (3.5-5.1)
[2020-01-31 12:44] LABS: BUN/Creatinine Ratio 30.2; Bilirubin, Total 0.7 mg/dL (0.2-1.0); Total Protein 7.3 g/dL (6.4-8.2)
== END | disposition home or self-care (01) ==
LOC: LAB 11:55
PROVIDERS: ATTEND Internal Medicine
DX: I11.0 Hypertensive heart disease with heart failure (principal); I50.9 Heart failure, unspecified
CPT/HCPCS: 36415; 80053

== ENCOUNTER → 2020-02-22 | Outpatient (CLI) | payer MEDICARE, BC | END | disposition home or self-care (01) | LOC: XY 07:22 | PROVIDERS: ATTEND Internal Medicine | DX: I70.0 Atherosclerosis of aorta (principal); I27.20 Pulmonary hypertension, unspecified | CPT/HCPCS: 71045; 78582; A9540; A9558 ==

== ENCOUNTER → 2020-10-13 | Outpatient (CLI) | payer MEDICARE, BC ==
[~2020-10-13] MED LIST changes: -LISI-646 PO; +LISI20TA28 PO; +RIOC1TAB13 PO; -RIOC1TAB5 PO
== END | disposition home or self-care (01) ==
LOC: XYW 07:27
PROVIDERS: ATTEND Internal Medicine
DX: I08.0 Rheumatic disorders of both mitral and aortic valves (principal); I10 Essential (primary) hypertension
CPT/HCPCS: 93306

== ENCOUNTER → 2021-01-09 | Outpatient (CLI) | payer MEDICARE, BC ==
[~2021-01-09] MED LIST changes: +CYANOCOBALAMIN (B-12) 1000 MCG/1 ML VIAL IM ONE; +CYANOCOBALAMIN (B-12) 1000 MCG/1 ML VIAL ONE
[2021-01-09 08:59] VITALS: BP 157/74
[2021-01-09 09:35] VITALS: BP 160/63
== END | disposition home or self-care (01) ==
LOC: CHF HDHVI 08:59
PROVIDERS: ATTEND Internal Medicine Cardiovascular Disease
DX: I27.21 Secondary pulmonary arterial hypertension (principal); I13.0 Hypertensive heart and chronic kidney disease with heart failure and stage 1 through stage 4 chronic kidney disease, or unspecified chronic kidney disease; E11.22 Type 2 diabetes mellitus with diabetic chronic kidney disease; I50.42 Chronic combined systolic (congestive) and diastolic (congestive) heart failure; N18.30 Chronic kidney disease, stage 3 unspecified; Z79.899 Other long term (current) drug therapy
CPT/HCPCS: 96372; G0463; J3420

== ENCOUNTER → 2021-01-09 | Outpatient (CLI) | payer MEDICARE, BC ==
[~2021-01-09] MED LIST changes: -CYANOCOBALAMIN (B-12) 1000 MCG/1 ML VIAL IM ONE; -CYANOCOBALAMIN (B-12) 1000 MCG/1 ML VIAL ONE
[2021-01-09 10:39] LABS: Basophils # (auto) 0.1 10 ^3/uL (0-0.2); Basophils % (auto) 0.9 % (0.0-2.0); Eosinophils # (auto) 0.2 10 ^3/uL (0-0.8); Eosinophils % (auto) 2.7 % (0.0-7.0); Hematocrit 48.5 % (36.0-46.0); Hemoglobin 16.7 g/dL (12.2-16.2); Lymphocytes % (auto) 22.6 % (10.0-50.0); Mean Corpuscular Hemoglobin 28.7 pg (28.0-32.0); Mean Corpuscular Hgb Conc. 34.4 g/dL (32.0-36.0); Mean Corpuscular Volume 83.3 fL (80.0-100.0); Monocytes # (auto) 0.9 10 ^3/uL (0-1.3); Monocytes % (auto) 9.8 % (0.0-12.0); Neutrophils # (auto) 5.6 10 ^3/uL (1.6-8.6); Red Blood Cells 5.82 10^6/uL (4.0-5.20); Red Cell Distribution Width 13.3 % (11.8-14.3); White Blood Cell 8.7 10^3/uL (4.4-10.8)
[2021-01-09 11:07] LABS: Potassium 4.2 mmol/L (3.5-5.1)
[2021-01-09 11:19] LABS: Albumin 3.8 g/dL (3.4-5.0); BUN/Creatinine Ratio 24.6; Bilirubin, Total 0.9 mg/dL (0.2-1.0); Calcium 10.3 mg/dL (8.5-10.1); Total Protein 7.1 g/dL (6.4-8.2)
== END | disposition home or self-care (01) ==
LOC: LAB 10:09
PROVIDERS: ATTEND Nurse Practitioner Family
DX: I12.9 Hypertensive chronic kidney disease with stage 1 through stage 4 chronic kidney disease, or unspecified chronic kidney disease (principal); N18.30 Chronic kidney disease, stage 3 unspecified; E11.22 Type 2 diabetes mellitus with diabetic chronic kidney disease; R35.1 Nocturia; I42.9 Cardiomyopathy, unspecified
CPT/HCPCS: 36415; 80053; 80061; 82043; 83036; 85025

== ENCOUNTER → 2021-02-06 | Outpatient (CLI) | payer MEDICARE, BC ==
[~2021-02-06] MED LIST changes: +CYANOCOBALAMIN (B-12) 1000 MCG/1 ML VIAL IM ONE; +CYANOCOBALAMIN (B-12) 1000 MCG/1 ML VIAL ONE
[2021-02-06 09:20] VITALS: BP 185/53
[2021-02-06 09:40] VITALS: BP 171/62
[2021-02-06 11:25] LABS: Basophils # (auto) 0.1 10 ^3/uL (0-0.2); Eosinophils # (auto) 0.2 10 ^3/uL (0-0.8); Eosinophils % (auto) 2.5 % (0.0-7.0); Hematocrit 43.1 % (36.0-46.0); Hemoglobin 15.1 g/dL (12.2-16.2); Lymphocytes # (auto) 1.4 10 ^3/uL (0.4-5.4); Lymphocytes % (auto) 19.1 % (10.0-50.0); Mean Corpuscular Hemoglobin 28.7 pg (28.0-32.0); Mean Corpuscular Hgb Conc. 35.1 g/dL (32.0-36.0); Mean Corpuscular Volume 81.9 fL (80.0-100.0); Monocytes # (auto) 0.7 10 ^3/uL (0-1.3); Monocytes % (auto) 10.2 % (0.0-12.0); Neutrophils # (auto) 4.8 10 ^3/uL (1.6-8.6); Neutrophils % (auto) 67.2 % (37.0-80.0); Nucleated Red Blood Cells % 0.1 %; Red Blood Cells 5.26 10^6/uL (4.0-5.20); Red Cell Distribution Width 12.7 % (11.8-14.3); White Blood Cell 7.1 10^3/uL (4.4-10.8)
[2021-02-06 11:37] LABS: Potassium 4.3 mmol/L (3.5-5.1)
[2021-02-06 11:48] LABS: Albumin 3.8 g/dL (3.4-5.0); BUN/Creatinine Ratio 18.3; Calcium 9.7 mg/dL (8.5-10.1); Magnesium 2.9 mg/dL (1.6-2.6); Total Protein 7.1 g/dL (6.4-8.2)
== END | disposition home or self-care (01) ==
LOC: CHF HDHVI 09:10
PROVIDERS: ATTEND Internal Medicine
DX: I13.0 Hypertensive heart and chronic kidney disease with heart failure and stage 1 through stage 4 chronic kidney disease, or unspecified chronic kidney disease (principal); E11.22 Type 2 diabetes mellitus with diabetic chronic kidney disease; N18.30 Chronic kidney disease, stage 3 unspecified; I50.42 Chronic combined systolic (congestive) and diastolic (congestive) heart failure; Z79.899 Other long term (current) drug therapy
CPT/HCPCS: 36415; 80053; 83036; 83735; 85025; 96372; G0463; J3420

== ENCOUNTER → 2021-03-06 | Outpatient (CLI) | payer MEDICARE, BC ==
[2021-03-06 08:57] VITALS: BP 184/59
[2021-03-06 09:15] VITALS: BP 176/64
[2021-03-06 11:46] LABS: Basophils # (auto) 0.1 10 ^3/uL (0-0.2); Basophils % (auto) 0.8 % (0.0-2.0); Eosinophils # (auto) 0.2 10 ^3/uL (0-0.8); Eosinophils % (auto) 2.4 % (0.0-7.0); Hematocrit 44.1 % (36.0-46.0); Lymphocytes # (auto) 1.9 10 ^3/uL (0.4-5.4); Lymphocytes % (auto) 19.2 % (10.0-50.0); Mean Corpuscular Hemoglobin 28.4 pg (28.0-32.0); Mean Corpuscular Hgb Conc. 34.1 g/dL (32.0-36.0); Mean Corpuscular Volume 83.4 fL (80.0-100.0); Monocytes % (auto) 9.8 % (0.0-12.0); Neutrophils # (auto) 6.7 10 ^3/uL (1.6-8.6); Neutrophils % (auto) 67.8 % (37.0-80.0); Red Blood Cells 5.29 10^6/uL (4.0-5.20); Red Cell Distribution Width 12.8 % (11.8-14.3); White Blood Cell 9.8 10^3/uL (4.4-10.8)
[2021-03-06 11:48] LABS: Potassium 4.6 mmol/L (3.5-5.1)
[2021-03-06 11:56] LABS: BUN/Creatinine Ratio 23.7; Bilirubin, Total 0.7 mg/dL (0.2-1.0); Calcium 10.1 mg/dL (8.5-10.1); Magnesium 3.5 mg/dL (1.6-2.6); Total Protein 7.6 g/dL (6.4-8.2)
== END | disposition home or self-care (01) ==
LOC: CHF HDHVI 08:55
PROVIDERS: ATTEND Internal Medicine Cardiovascular Disease
DX: I27.21 Secondary pulmonary arterial hypertension (principal); I13.0 Hypertensive heart and chronic kidney disease with heart failure and stage 1 through stage 4 chronic kidney disease, or unspecified chronic kidney disease; E11.22 Type 2 diabetes mellitus with diabetic chronic kidney disease; N18.30 Chronic kidney disease, stage 3 unspecified; I50.42 Chronic combined systolic (congestive) and diastolic (congestive) heart failure; Z79.899 Other long term (current) drug therapy
CPT/HCPCS: 36415; 80053; 83735; 85025; 96372; G0463; J3420

== ENCOUNTER 2021-03-28 02:07 | Emergency (ER) | payer MEDICARE, BC ==
[~2021-03-28] VITALS: Ht 162.6 cm; Wt 74.8 kg
[~2021-03-28 02:07] MED LIST changes: -CYANOCOBALAMIN (B-12) 1000 MCG/1 ML VIAL IM ONE; -CYANOCOBALAMIN (B-12) 1000 MCG/1 ML VIAL ONE
[2021-03-28 02:36] VITALS: BP 123/66
[2021-03-28 03:48] LABS: Basophils # (auto) 0.1 10 ^3/uL (0-0.2); Basophils % (auto) 0.5 % (0.0-2.0); Eosinophils # (auto) 0.2 10 ^3/uL (0-0.8); Eosinophils % (auto) 1.3 % (0.0-7.0); Hematocrit 46.7 % (36.0-46.0); Hemoglobin 16.3 g/dL (12.2-16.2); Lymphocytes # (auto) 1.3 10 ^3/uL (0.4-5.4); Lymphocytes % (auto) 10.8 % (10.0-50.0); Mean Corpuscular Hgb Conc. 34.9 g/dL (32.0-36.0); Mean Corpuscular Volume 80.3 fL (80.0-100.0); Monocytes # (auto) 0.9 10 ^3/uL (0-1.3); Monocytes % (auto) 7.3 % (0.0-12.0); Neutrophils % (auto) 80.1 % (37.0-80.0); Nucleated Red Blood Cells % 0.3 %; Red Blood Cells 5.81 10^6/uL (4.0-5.20); Red Cell Distribution Width 12.7 % (11.8-14.3); White Blood Cell 12.4 10^3/uL (4.4-10.8)
[2021-03-28 03:56] LABS: Albumin 4.2 g/dL (3.4-5.0); Calcium 10.2 mg/dL (8.5-10.1); Potassium 4.7 mmol/L (3.5-5.1)
[2021-03-28 03:59] LABS: BUN/Creatinine Ratio 21.1; Bilirubin, Total 1.2 mg/dL (0.2-1.0); Total Protein 8.2 g/dL (6.4-8.2)
== END 2021-03-28 05:48 | disposition home or self-care (01) ==
LOC: ER 02:07 → EDBD 02:07 → ER 05:45
DX: E11.649 Type 2 diabetes mellitus with hypoglycemia without coma (principal); I10 Essential (primary) hypertension; R41.82 Altered mental status, unspecified
CPT/HCPCS: 36415; 70450; 71045; 80053; 85025; 93005

== ENCOUNTER → 2021-04-03 | Outpatient (CLI) | payer MEDICARE, BC | END | disposition home or self-care (01) | LOC: LAB 09:50 | PROVIDERS: ATTEND Nurse Practitioner Family | DX: Z00.00 Encounter for general adult medical examination without abnormal findings (principal); E03.9 Hypothyroidism, unspecified | CPT/HCPCS: 36415; 84439; 84443 ==

== ENCOUNTER → 2021-04-03 | Outpatient (CLI) | payer MEDICARE, BC ==
[~2021-04-03] MED LIST changes: +CYANOCOBALAMIN (B-12) 1000 MCG/1 ML VIAL IM ONE; +CYANOCOBALAMIN (B-12) 1000 MCG/1 ML VIAL ONE
[2021-04-03 08:57] VITALS: BP 177/73
[2021-04-03 09:17] VITALS: BP 150/52
[2021-04-03 11:37] LABS: Potassium 4.6 mmol/L (3.5-5.1)
[2021-04-03 11:42] LABS: Basophils # (auto) 0.1 10 ^3/uL (0-0.2); Basophils % (auto) 1.1 % (0.0-2.0); Eosinophils # (auto) 0.2 10 ^3/uL (0-0.8); Eosinophils % (auto) 2.4 % (0.0-7.0); Hematocrit 40.9 % (36.0-46.0); Hemoglobin 14.3 g/dL (12.2-16.2); Lymphocytes # (auto) 1.5 10 ^3/uL (0.4-5.4); Lymphocytes % (auto) 17.9 % (10.0-50.0); Mean Corpuscular Hemoglobin 28.9 pg (28.0-32.0); Mean Corpuscular Volume 82.4 fL (80.0-100.0); Monocytes # (auto) 0.8 10 ^3/uL (0-1.3); Monocytes % (auto) 10.1 % (0.0-12.0); Neutrophils # (auto) 5.6 10 ^3/uL (1.6-8.6); Neutrophils % (auto) 68.5 % (37.0-80.0); Nucleated Red Blood Cells % 0.2 %; Red Blood Cells 4.97 10^6/uL (4.0-5.20); Red Cell Distribution Width 13.2 % (11.8-14.3); White Blood Cell 8.2 10^3/uL (4.4-10.8)
[2021-04-03 11:46] LABS: Albumin 3.9 g/dL (3.4-5.0); BUN/Creatinine Ratio 28.2; Bilirubin, Total 0.8 mg/dL (0.2-1.0); Calcium 10.1 mg/dL (8.5-10.1); Magnesium 2.4 mg/dL (1.6-2.6); Total Protein 7.1 g/dL (6.4-8.2)
== END | disposition home or self-care (01) ==
LOC: CHF HDHVI 09:02
PROVIDERS: ATTEND Internal Medicine Cardiovascular Disease
DX: I27.21 Secondary pulmonary arterial hypertension (principal); I13.0 Hypertensive heart and chronic kidney disease with heart failure and stage 1 through stage 4 chronic kidney disease, or unspecified chronic kidney disease; E11.22 Type 2 diabetes mellitus with diabetic chronic kidney disease; I50.42 Chronic combined systolic (congestive) and diastolic (congestive) heart failure; N18.30 Chronic kidney disease, stage 3 unspecified; E03.9 Hypothyroidism, unspecified; Z79.899 Other long term (current) drug therapy
CPT/HCPCS: 36415; 80053; 83735; 85025; 96372; G0463; J3420

== ENCOUNTER → 2021-04-17 | Outpatient (CLI) | payer MEDICARE, BC ==
[~2021-04-17] MED LIST changes: -CYANOCOBALAMIN (B-12) 1000 MCG/1 ML VIAL IM ONE; -CYANOCOBALAMIN (B-12) 1000 MCG/1 ML VIAL ONE
[2021-04-17 15:37] LABS: Calcium 10.2 mg/dL (8.5-10.1); Potassium 4.1 mmol/L (3.5-5.1)
== END | disposition home or self-care (01) ==
LOC: LAB 13:36
PROVIDERS: ATTEND Internal Medicine
DX: I10 Essential (primary) hypertension (principal)
CPT/HCPCS: 36415; 80048

== ENCOUNTER → 2021-04-30 | Outpatient (CLI) | payer MEDICARE, BC | END | disposition home or self-care (01) | LOC: XYW 07:29 | PROVIDERS: ATTEND Internal Medicine | DX: I08.3 Combined rheumatic disorders of mitral, aortic and tricuspid valves (principal); I27.20 Pulmonary hypertension, unspecified | CPT/HCPCS: 93306 ==

== ENCOUNTER → 2021-05-01 | Outpatient (CLI) | payer MEDICARE, BC ==
[~2021-05-01] MED LIST changes: +CYANOCOBALAMIN (B-12) 1000 MCG/1 ML VIAL IM ONE; +CYANOCOBALAMIN (B-12) 1000 MCG/1 ML VIAL ONE
[2021-05-01 08:30] VITALS: BP 170/91
[2021-05-01 09:25] VITALS: BP 177/60
[2021-05-01 10:10] VITALS: BP 166/59
[2021-05-01 12:13] LABS: Basophils # (auto) 0.1 10 ^3/uL (0-0.2); Basophils % (auto) 1.6 % (0.0-2.0); Eosinophils # (auto) 0.2 10 ^3/uL (0-0.8); Eosinophils % (auto) 2.5 % (0.0-7.0); Hematocrit 41.6 % (36.0-46.0); Hemoglobin 14.5 g/dL (12.2-16.2); Lymphocytes # (auto) 1.4 10 ^3/uL (0.4-5.4); Lymphocytes % (auto) 19.6 % (10.0-50.0); Mean Corpuscular Hemoglobin 28.7 pg (28.0-32.0); Mean Corpuscular Hgb Conc. 34.7 g/dL (32.0-36.0); Mean Corpuscular Volume 82.8 fL (80.0-100.0); Monocytes # (auto) 0.7 10 ^3/uL (0-1.3); Monocytes % (auto) 9.2 % (0.0-12.0); Neutrophils # (auto) 4.8 10 ^3/uL (1.6-8.6); Neutrophils % (auto) 67.1 % (37.0-80.0); Nucleated Red Blood Cells % 0.1 %; Red Blood Cells 5.03 10^6/uL (4.0-5.20); Red Cell Distribution Width 13.5 % (11.8-14.3); White Blood Cell 7.1 10^3/uL (4.4-10.8)
[2021-05-01 12:22] LABS: Calcium 10.2 mg/dL (8.5-10.1)
[2021-05-01 12:25] LABS: BUN/Creatinine Ratio 27.5; Bilirubin, Total 0.7 mg/dL (0.2-1.0); Total Protein 7.5 g/dL (6.4-8.2)
== END | disposition home or self-care (01) ==
LOC: CHF HDHVI 09:23
PROVIDERS: ATTEND Internal Medicine Cardiovascular Disease
DX: I13.0 Hypertensive heart and chronic kidney disease with heart failure and stage 1 through stage 4 chronic kidney disease, or unspecified chronic kidney disease (principal); E11.22 Type 2 diabetes mellitus with diabetic chronic kidney disease; I50.42 Chronic combined systolic (congestive) and diastolic (congestive) heart failure; N18.30 Chronic kidney disease, stage 3 unspecified; I27.21 Secondary pulmonary arterial hypertension; I08.3 Combined rheumatic disorders of mitral, aortic and tricuspid valves; Z79.899 Other long term (current) drug therapy
CPT/HCPCS: 36415; 80053; 83036; 83735; 83880; 85025; 96372; G0463; J3420

== ENCOUNTER → 2021-05-29 | Outpatient (CLI) | payer MEDICARE, BC, OTHER ==
[~2021-05-29] VITALS: Ht 30.5 cm; Wt 0.5 kg
[~2021-05-29] MED LIST changes: +CYANOCOBALAMIN (B-12) 1000 MCG/1 ML VIAL SUBCUT ONE
[2021-05-29 09:00] VITALS: BP 178/66
[2021-05-29 09:48] VITALS: BP 153/55
[2021-05-29 12:18] LABS: Basophils # (auto) 0.1 10 ^3/uL (0-0.2); Basophils % (auto) 1.1 % (0.0-2.0); Eosinophils # (auto) 0.3 10 ^3/uL (0-0.8); Hematocrit 43.7 % (36.0-46.0); Hemoglobin 15.1 g/dL (12.2-16.2); Lymphocytes # (auto) 1.8 10 ^3/uL (0.4-5.4); Lymphocytes % (auto) 15.6 % (10.0-50.0); Mean Corpuscular Hemoglobin 28.7 pg (28.0-32.0); Mean Corpuscular Hgb Conc. 34.6 g/dL (32.0-36.0); Mean Corpuscular Volume 82.8 fL (80.0-100.0); Monocytes # (auto) 0.8 10 ^3/uL (0-1.3); Neutrophils # (auto) 8.3 10 ^3/uL (1.6-8.6); Neutrophils % (auto) 73.3 % (37.0-80.0); Nucleated Red Blood Cells % 0.3 %; Red Blood Cells 5.29 10^6/uL (4.0-5.20); White Blood Cell 11.3 10^3/uL (4.4-10.8)
[2021-05-29 12:22] LABS: Potassium 4.6 mmol/L (3.5-5.1)
[2021-05-29 12:35] LABS: Albumin 3.9 g/dL (3.4-5.0); BUN/Creatinine Ratio 25.6; Bilirubin, Total 0.9 mg/dL (0.2-1.0); Magnesium 2.8 mg/dL (1.6-2.6); Total Protein 7.8 g/dL (6.4-8.2)
== END | disposition home or self-care (01) ==
LOC: CHF HDHVI 08:56
PROVIDERS: ATTEND Internal Medicine
DX: I27.21 Secondary pulmonary arterial hypertension (principal); E11.22 Type 2 diabetes mellitus with diabetic chronic kidney disease; I13.0 Hypertensive heart and chronic kidney disease with heart failure and stage 1 through stage 4 chronic kidney disease, or unspecified chronic kidney disease; N18.30 Chronic kidney disease, stage 3 unspecified; I50.42 Chronic combined systolic (congestive) and diastolic (congestive) heart failure; E03.9 Hypothyroidism, unspecified; Z79.899 Other long term (current) drug therapy
CPT/HCPCS: 36415; 80053; 83735; 85025; 94618; 96372; G0463; J3420

== ENCOUNTER → 2021-07-24 | Outpatient (CLI) | payer MEDICARE, BC ==
[~2021-07-24] VITALS: Ht 30.5 cm; Wt 0.5 kg
[~2021-07-24] MED LIST changes: -CYANOCOBALAMIN (B-12) 1000 MCG/1 ML VIAL SUBCUT ONE
[2021-07-24 09:01] VITALS: BP 172/60
[2021-07-24 09:30] VITALS: BP 167/59
[2021-07-24 11:58] LABS: Basophils # (auto) 0.1 10 ^3/uL (0-0.2); Basophils % (auto) 0.9 % (0.0-2.0); Eosinophils # (auto) 0.4 10 ^3/uL (0-0.8); Eosinophils % (auto) 3.4 % (0.0-7.0); Hematocrit 38.7 % (36.0-46.0); Hemoglobin 13.9 g/dL (12.2-16.2); Lymphocytes # (auto) 1.4 10 ^3/uL (0.4-5.4); Lymphocytes % (auto) 13.6 % (10.0-50.0); Mean Corpuscular Hemoglobin 29.2 pg (28.0-32.0); Monocytes # (auto) 0.7 10 ^3/uL (0-1.3); Monocytes % (auto) 6.8 % (0.0-12.0); Neutrophils % (auto) 75.3 % (37.0-80.0); Red Blood Cells 4.78 10^6/uL (4.0-5.20); Red Cell Distribution Width 12.7 % (11.8-14.3); White Blood Cell 10.6 10^3/uL (4.4-10.8)
[2021-07-24 12:04] LABS: Albumin 3.9 g/dL (3.4-5.0); Calcium 9.7 mg/dL (8.5-10.1); Magnesium 2.6 mg/dL (1.6-2.6); Potassium 4.3 mmol/L (3.5-5.1)
[2021-07-24 12:08] LABS: BUN/Creatinine Ratio 26.9; Bilirubin, Total 0.9 mg/dL (0.2-1.0); Total Protein 7.5 g/dL (6.4-8.2)
== END | disposition home or self-care (01) ==
LOC: CHF HDHVI 08:57
PROVIDERS: ATTEND Internal Medicine
DX: I27.21 Secondary pulmonary arterial hypertension (principal); I13.0 Hypertensive heart and chronic kidney disease with heart failure and stage 1 through stage 4 chronic kidney disease, or unspecified chronic kidney disease; E11.22 Type 2 diabetes mellitus with diabetic chronic kidney disease; I50.42 Chronic combined systolic (congestive) and diastolic (congestive) heart failure; N18.30 Chronic kidney disease, stage 3 unspecified; E03.9 Hypothyroidism, unspecified; Z79.899 Other long term (current) drug therapy
CPT/HCPCS: 36415; 80053; 83735; 85025; 96372; G0463; J3420

== ENCOUNTER → 2021-12-17 | Outpatient (CLI) | payer MEDICARE, BC ==
[2021-12-17 08:33] VITALS: BP 192/67
[2021-12-17 09:28] VITALS: BP 171/57
[2021-12-17 11:42] LABS: Basophils # (auto) 0.1 10 ^3/uL (0-0.2); Basophils % (auto) 0.9 % (0.0-2.0); Eosinophils # (auto) 0.3 10 ^3/uL (0-0.8); Eosinophils % (auto) 3.4 % (0.0-7.0); Hematocrit 44.6 % (36.0-46.0); Hemoglobin 15.2 g/dL (12.2-16.2); Lymphocytes # (auto) 1.7 10 ^3/uL (0.4-5.4); Lymphocytes % (auto) 22.1 % (10.0-50.0); Mean Corpuscular Hemoglobin 28.7 pg (28.0-32.0); Mean Corpuscular Hgb Conc. 34.2 g/dL (32.0-36.0); Monocytes # (auto) 0.9 10 ^3/uL (0-1.3); Monocytes % (auto) 11.9 % (0.0-12.0); Neutrophils # (auto) 4.9 10 ^3/uL (1.6-8.6); Neutrophils % (auto) 61.7 % (37.0-80.0); Nucleated Red Blood Cells % 0.1 %; White Blood Cell 7.9 10^3/uL (4.4-10.8)
[2021-12-17 11:56] LABS: Magnesium 3.2 mg/dL (1.6-2.6); Potassium 4.5 mmol/L (3.5-5.1)
[2021-12-17 11:57] LABS: Bilirubin, Total 0.8 mg/dL (0.2-1.0)
== END | disposition home or self-care (01) ==
LOC: CHF HDHVI 08:30
PROVIDERS: ATTEND Internal Medicine
DX: E11.9 Type 2 diabetes mellitus without complications (principal)
CPT/HCPCS: 36415; 80053; 83036; 83735; 85025; 94618; 96372; G0463

== ENCOUNTER → 2021-12-18 | Outpatient (CLI) | payer MEDICARE, BC ==
[~2021-12-18] MED LIST changes: -CYANOCOBALAMIN (B-12) 1000 MCG/1 ML VIAL IM ONE; -CYANOCOBALAMIN (B-12) 1000 MCG/1 ML VIAL ONE
== END | disposition home or self-care (01) ==
LOC: Rad HDHVI 08:13
PROVIDERS: ATTEND Internal Medicine
DX: I08.3 Combined rheumatic disorders of mitral, aortic and tricuspid valves (principal); R94.4 Abnormal results of kidney function studies; I10 Essential (primary) hypertension; I11.9 Hypertensive heart disease without heart failure; I27.21 Secondary pulmonary arterial hypertension
CPT/HCPCS: 36415; 82565; 84520; 93306

== ENCOUNTER → 2022-01-07 | Outpatient (CLI) | payer MEDICARE, BC ==
[2022-01-07 10:32] LABS: Basophils # (auto) 0.1 10 ^3/uL (0-0.2); Basophils % (auto) 0.7 % (0.0-2.0); Eosinophils # (auto) 0.3 10 ^3/uL (0-0.8); Eosinophils % (auto) 2.4 % (0.0-7.0); Hematocrit 44.1 % (36.0-46.0); Hemoglobin 14.7 g/dL (12.2-16.2); Lymphocytes # (auto) 1.9 10 ^3/uL (0.4-5.4); Lymphocytes % (auto) 17.5 % (10.0-50.0); Mean Corpuscular Hemoglobin 28.2 pg (28.0-32.0); Mean Corpuscular Hgb Conc. 33.3 g/dL (32.0-36.0); Mean Corpuscular Volume 84.6 fL (80.0-100.0); Monocytes % (auto) 8.6 % (0.0-12.0); Neutrophils # (auto) 7.8 10 ^3/uL (1.6-8.6); Neutrophils % (auto) 70.8 % (37.0-80.0); Nucleated Red Blood Cells % 0.1 %; Red Blood Cells 5.22 10^6/uL (4.0-5.20); Red Cell Distribution Width 13.1 % (11.8-14.3)
[2022-01-07 11:23] LABS: Bilirubin, Total 0.9 mg/dL (0.2-1.0); Calcium 10.4 mg/dL (8.5-10.1); Potassium 4.4 mmol/L (3.5-5.1); Total Protein 7.7 g/dL (6.4-8.2)
== END | disposition home or self-care (01) ==
LOC: LAB 10:08
PROVIDERS: ATTEND Nurse Practitioner Family
DX: E11.22 Type 2 diabetes mellitus with diabetic chronic kidney disease (principal); N18.9 Chronic kidney disease, unspecified; E03.9 Hypothyroidism, unspecified
CPT/HCPCS: 36415; 80053; 80061; 83036; 84439; 84443; 85025

== ENCOUNTER → 2022-01-09 | Outpatient (CLI) | payer MEDICARE, BC ==
[~2022-01-09] MED LIST changes: +CYANOCOBALAMIN (B-12) 1000 MCG/1 ML VIAL IM ONE; +CYANOCOBALAMIN (B-12) 1000 MCG/1 ML VIAL ONE
[2022-01-09 09:11] VITALS: BP 173/56
[2022-01-09 09:38] VITALS: BP 170/62
[2022-01-09 10:17] LABS: Basophils # (auto) 0.1 10 ^3/uL (0-0.2); Basophils % (auto) 0.8 % (0.0-2.0); Eosinophils # (auto) 0.3 10 ^3/uL (0-0.8); Eosinophils % (auto) 2.6 % (0.0-7.0); Hematocrit 42.6 % (36.0-46.0); Hemoglobin 14.5 g/dL (12.2-16.2); Lymphocytes # (auto) 1.5 10 ^3/uL (0.4-5.4); Lymphocytes % (auto) 14.6 % (10.0-50.0); Mean Corpuscular Hemoglobin 28.8 pg (28.0-32.0); Mean Corpuscular Hgb Conc. 34.1 g/dL (32.0-36.0); Mean Corpuscular Volume 84.6 fL (80.0-100.0); Monocytes # (auto) 0.9 10 ^3/uL (0-1.3); Monocytes % (auto) 8.5 % (0.0-12.0); Neutrophils # (auto) 7.8 10 ^3/uL (1.6-8.6); Neutrophils % (auto) 73.5 % (37.0-80.0); Red Blood Cells 5.03 10^6/uL (4.0-5.20); Red Cell Distribution Width 13.2 % (11.8-14.3); White Blood Cell 10.6 10^3/uL (4.4-10.8)
[2022-01-09 10:26] LABS: Alanine Aminotransferase 32 U/L (13-56); Albumin 3.7 g/dL (3.4-5.0); Alkaline Phosphatase 112 U/L (45-117); Anion Gap 5 (5-15); Aspartate Aminotransferase 21 U/L (15-37); BUN/Creatinine Ratio 40.6; Bilirubin, Total < 0.1 mg/dL (0.2-1.0); Blood Urea Nitrogen 78 mg/dL (7-18); Calcium 9.4 mg/dL (8.5-10.1); Carbon Dioxide 27 mmol/L (21-32); Chloride 104 mmol/L (98-107); GFR African American 32 mL/min; GFR Non-African American 27 mL/min; Glucose 146 mg/dL (74-106); Magnesium 2.7 mg/dL (1.6-2.6); Potassium 4.4 mmol/L (3.5-5.1); Sodium 136 mmol/L (136-145); Total Protein 7.4 g/dL (6.4-8.2)
== END | disposition home or self-care (01) ==
LOC: CHF HDHVI 09:09
PROVIDERS: ATTEND Internal Medicine
DX: I27.21 Secondary pulmonary arterial hypertension (principal)
CPT/HCPCS: 36415; 80053; 83735; 85025; 96372; G0463

== ENCOUNTER → 2022-10-15 | Outpatient (CLI) | payer MEDICARE, BC ==
[~2022-10-15] MED LIST changes: -CYANOCOBALAMIN (B-12) 1000 MCG/1 ML VIAL IM ONE; -CYANOCOBALAMIN (B-12) 1000 MCG/1 ML VIAL ONE; -DICL1GEL50 TD; +DICL1GEL73 TD; -LISI20TA28 PO; +LISI20TA56 PO
== END | disposition home or self-care (01) ==
LOC: XYW 13:36
PROVIDERS: ATTEND Student in an Organized Health Care Education/Training Program
DX: I08.0 Rheumatic disorders of both mitral and aortic valves (principal); I27.20 Pulmonary hypertension, unspecified
CPT/HCPCS: 93306

== ENCOUNTER 2022-12-11 07:10 | Day surgery (SDC) | payer MEDICARE, BC ==
[2022-12-10 10:31] LABS: Basophils # (auto) 0.1 10 ^3/uL (0-0.2); Eosinophils # (auto) 0.3 10 ^3/uL (0-0.8); Eosinophils % (auto) 4.1 % (0.0-7.0); Hematocrit 41.4 % (36.0-46.0); Hemoglobin 14.2 g/dL (12.2-16.2); Lymphocytes # (auto) 1.4 10 ^3/uL (0.4-5.4); Lymphocytes % (auto) 18.6 % (10.0-50.0); Mean Corpuscular Hemoglobin 29.1 pg (28.0-32.0); Mean Corpuscular Hgb Conc. 34.5 g/dL (32.0-36.0); Mean Corpuscular Volume 84.3 fL (80.0-100.0); Neutrophils # (auto) 4.6 10 ^3/uL (1.6-8.6); Neutrophils % (auto) 62.3 % (37.0-80.0); Nucleated Red Blood Cells % 0.1 %; Red Cell Distribution Width 13.6 % (11.8-14.3); White Blood Cell 7.4 10^3/uL (4.4-10.8)
[2022-12-10 10:54] LABS: INR 1.15 (0.9-1.15)
[2022-12-10 11:43] LABS: Alanine Aminotransferase 23 U/L (7-40); Alkaline Phosphatase 99 U/L (46-116); Anion Gap 9 (5-15); BUN/Creatinine Ratio 18.5 (10.0-20.0); Blood Urea Nitrogen 32 mg/dL (9-23); Calcium 10.3 mg/dL (8.5-10.1); Carbon Dioxide 26 mmol/L (20-30); Chloride 95 mmol/L (98-107); Glucose 176 mg/dL (74-106); Potassium 4.1 mmol/L (3.5-5.1); Sodium 130 mmol/L (136-145)
[2022-12-10 11:45] LABS: Albumin 4.7 g/dL (3.2-4.8); Aspartate Aminotransferase 34 U/L (13-40); Total Protein 7.6 g/dL (5.7-8.2)
[~2022-12-11] VITALS: Ht 165.1 cm; Wt 72.1 kg
[~2022-12-11 07:10] MED LIST changes: +AMLO1TAB22 PO; -DICL1GEL73 TD; +EMPA1TAB PO; -LISI20TA56 PO; -MACI1TAB2 PO; +POM PO; +POTA10TA51 PO; -RIOC1TAB13 PO
[2022-12-11] MEDS ORDERED: ANGIOMAX 250 MG VIAL IV ONE (08:31)
[2022-12-11] MEDS ORDERED: LIDOCAINE 2%HCL (LOCAL ANESTH.) INJ 20ML MDV ONE (08:32)
[2022-12-11] MEDS ORDERED: IODIXANOL 320MG/ML 100ML BTL IV ONE (08:32)
[2022-12-11] MEDS ORDERED: MIDAZOLAM HCL 2MG/2ML 2ml VIAL (1mg/ml) ONE (08:32)
[2022-12-11] MEDS ORDERED: SODIUM CHL 0.9% 0 ML ONE (08:32)
[2022-12-11] MEDS ORDERED: fentaNYL CITRATE 100 MCG/2 ML VL ONE (08:32)
[2022-12-11] MEDS ORDERED: HEPARIN SODIUM (PORCINE) 5000 UNITS/ML 1ML VIAL ONE (09:27)
== END 2022-12-11 12:05 | disposition home or self-care (01) ==
LOC: CATH 07:10
PROVIDERS: ATTEND Internal Medicine
DX: I27.20 Pulmonary hypertension, unspecified (principal); I05.0 Rheumatic mitral stenosis; I35.0 Nonrheumatic aortic (valve) stenosis; I10 Essential (primary) hypertension; E78.5 Hyperlipidemia, unspecified; Z79.899 Other long term (current) drug therapy; Z98.890 Other specified postprocedural states
CPT/HCPCS: 36415; 76937; 80053; 85025; 85610; 85730; 93460; C1757; C1769; C1894; J1644; J2250; J3010; J7030; Q9967; 99152

== ENCOUNTER → 2022-12-19 | Outpatient (CLI) | payer MEDICARE, BC ==
[2022-12-19 10:50] LABS: Basophils # (auto) 0.1 10 ^3/uL (0-0.2); Basophils % (auto) 1.1 % (0.0-2.0); Eosinophils # (auto) 0.3 10 ^3/uL (0-0.8); Eosinophils % (auto) 3.7 % (0.0-7.0); Hematocrit 42.6 % (36.0-46.0); Hemoglobin 14.6 g/dL (12.2-16.2); Lymphocytes # (auto) 1.6 10 ^3/uL (0.4-5.4); Lymphocytes % (auto) 18.3 % (10.0-50.0); Mean Corpuscular Hemoglobin 29.2 pg (28.0-32.0); Mean Corpuscular Hgb Conc. 34.2 g/dL (32.0-36.0); Mean Corpuscular Volume 85.3 fL (80.0-100.0); Neutrophils # (auto) 5.6 10 ^3/uL (1.6-8.6); Neutrophils % (auto) 64.9 % (37.0-80.0); Nucleated Red Blood Cells % 0.1 %; White Blood Cell 8.6 10^3/uL (4.4-10.8)
[2022-12-19 11:27] LABS: Alanine Aminotransferase 27 U/L (7-40); Albumin 4.7 g/dL (3.2-4.8); Alkaline Phosphatase 130 U/L (46-116); Anion Gap 6 (5-15); Aspartate Aminotransferase 31 U/L (13-40); BUN/Creatinine Ratio 15.5 (10.0-20.0); Blood Urea Nitrogen 27 mg/dL (9-23); Calcium 11.3 mg/dL (8.7-10.4); Carbon Dioxide 27 mmol/L (20-30); Chloride 105 mmol/L (98-107); Glucose 103 mg/dL (74-106); Potassium 4.5 mmol/L (3.5-5.1); Sodium 138 mmol/L (136-145)
[2022-12-19 11:28] LABS: Bilirubin, Total 0.7 mg/dL (0.2-1.0); Total Protein 7.8 g/dL (5.7-8.2)
[2022-12-19 11:33] LABS: Creatinine, Urine 47.67 mg/dL (30.0-125.0)
[2022-12-19 11:51] LABS: Triglycerides 47 mg/dL (< 150)
[2022-12-19 11:52] LABS: LDL Cholesterol 36 mg/dL (< 100)
[2022-12-19 11:53] LABS: Cholesterol 97 mg/dL (< 200); HDL Cholesterol 46 mg/dL (40-59)
== END | disposition home or self-care (01) ==
LOC: LAB 10:13
PROVIDERS: ATTEND Nurse Practitioner Family
DX: E11.22 Type 2 diabetes mellitus with diabetic chronic kidney disease (principal); N18.9 Chronic kidney disease, unspecified; I27.20 Pulmonary hypertension, unspecified; Z00.01 Encounter for general adult medical examination with abnormal findings
CPT/HCPCS: 36415; 80053; 80061; 82043; 82570; 83036; 84439; 84443; 85025

== ENCOUNTER → 2023-01-02 | Outpatient (CLI) | payer MEDICARE, BC ==
[2023-01-02 11:38] LABS: Basophils # (auto) 0.1 10 ^3/uL (0-0.2); Eosinophils # (auto) 0.3 10 ^3/uL (0-0.8); Eosinophils % (auto) 3.2 % (0.0-7.0); Hematocrit 48.4 % (36.0-46.0); Hemoglobin 16.6 g/dL (12.2-16.2); Lymphocytes # (auto) 1.9 10 ^3/uL (0.4-5.4); Lymphocytes % (auto) 18.8 % (10.0-50.0); Mean Corpuscular Hemoglobin 29.2 pg (28.0-32.0); Mean Corpuscular Hgb Conc. 34.2 g/dL (32.0-36.0); Mean Corpuscular Volume 85.3 fL (80.0-100.0); Monocytes # (auto) 0.9 10 ^3/uL (0-1.3); Monocytes % (auto) 8.7 % (0.0-12.0); Neutrophils # (auto) 6.9 10 ^3/uL (1.6-8.6); Neutrophils % (auto) 68.3 % (37.0-80.0); Nucleated Red Blood Cells % 0.2 %; Red Blood Cells 5.67 10^6/uL (4.0-5.20); Red Cell Distribution Width 13.9 % (11.8-14.3); White Blood Cell 10.2 10^3/uL (4.4-10.8)
[2023-01-02 12:04] LABS: Anion Gap 9 (5-15); Carbon Dioxide 29 mmol/L (20-30); Chloride 100 mmol/L (98-107); Sodium 138 mmol/L (136-145)
[2023-01-02 12:05] LABS: Calcium 10.5 mg/dL (8.5-10.1)
[2023-01-02 12:10] LABS: BUN/Creatinine Ratio 22.2 (10.0-20.0); Blood Urea Nitrogen 40 mg/dL (9-23); Glucose 209 mg/dL (74-106)
== END | disposition home or self-care (01) ==
LOC: LAB 11:24
PROVIDERS: ATTEND Internal Medicine Cardiovascular Disease
DX: I34.0 Nonrheumatic mitral (valve) insufficiency (principal)
CPT/HCPCS: 36415; 80048; 85025

== ENCOUNTER → 2023-01-29 | Outpatient (CLI) | payer MEDICARE, BC ==
[2023-01-29 11:14] LABS: Basophils # (auto) 0.1 10 ^3/uL (0-0.2); Basophils % (auto) 1.1 % (0.0-2.0); Eosinophils # (auto) 0.4 10 ^3/uL (0-0.8); Eosinophils % (auto) 3.3 % (0.0-7.0); Hematocrit 48.5 % (36.0-46.0); Hemoglobin 16.6 g/dL (12.2-16.2); Lymphocytes % (auto) 18.6 % (10.0-50.0); Mean Corpuscular Hemoglobin 28.6 pg (28.0-32.0); Mean Corpuscular Hgb Conc. 34.1 g/dL (32.0-36.0); Mean Corpuscular Volume 83.8 fL (80.0-100.0); Monocytes # (auto) 0.9 10 ^3/uL (0-1.3); Monocytes % (auto) 8.5 % (0.0-12.0); Neutrophils # (auto) 7.4 10 ^3/uL (1.6-8.6); Neutrophils % (auto) 68.5 % (37.0-80.0); Nucleated Red Blood Cells % 0.2 %; Red Blood Cells 5.79 10^6/uL (4.0-5.20); Red Cell Distribution Width 13.8 % (11.8-14.3); White Blood Cell 10.9 10^3/uL (4.4-10.8)
[2023-01-29 11:49] LABS: Chloride 101 mmol/L (98-107); Potassium 4.4 mmol/L (3.5-5.1); Sodium 136 mmol/L (136-145)
[2023-01-29 11:50] LABS: Anion Gap 8 (5-15); Calcium 10.4 mg/dL (8.7-10.4); Carbon Dioxide 27 mmol/L (20-30)
[2023-01-29 11:55] LABS: BUN/Creatinine Ratio 16.4 (10.0-20.0); Blood Urea Nitrogen 30 mg/dL (9-23); Glucose 225 mg/dL (74-106)
== END | disposition home or self-care (01) ==
LOC: LAB 10:57
PROVIDERS: ATTEND Internal Medicine Cardiovascular Disease
DX: I34.0 Nonrheumatic mitral (valve) insufficiency (principal)
CPT/HCPCS: 36415; 80048; 85025

== ENCOUNTER → 2023-04-11 | Outpatient (CLI) | payer MEDICARE, BC ==
[2023-04-11 11:23] LABS: Basophils # (auto) 0.1 10 ^3/uL (0-0.2); Basophils % (auto) 0.8 % (0.0-2.0); Eosinophils # (auto) 0.2 10 ^3/uL (0-0.8); Eosinophils % (auto) 2.1 % (0.0-7.0); Hematocrit 46.5 % (36.0-46.0); Hemoglobin 15.8 g/dL (12.2-16.2); Lymphocytes % (auto) 20.1 % (10.0-50.0); Mean Corpuscular Hemoglobin 28.1 pg (28.0-32.0); Mean Corpuscular Hgb Conc. 33.9 g/dL (32.0-36.0); Mean Corpuscular Volume 82.8 fL (80.0-100.0); Monocytes # (auto) 0.9 10 ^3/uL (0-1.3); Monocytes % (auto) 9.4 % (0.0-12.0); Neutrophils # (auto) 6.7 10 ^3/uL (1.6-8.6); Neutrophils % (auto) 67.6 % (37.0-80.0); Nucleated Red Blood Cells % 0.2 %; Red Blood Cells 5.61 10^6/uL (4.0-5.20); Red Cell Distribution Width 13.5 % (11.8-14.3)
[2023-04-11 11:41] LABS: Urine Bacteria FEW /hpf (None Seen); Urine Blood Negative /uL (Negative); Urine Clarity HAZY (Clear); Urine Color Colorless (Yellow); Urine Protein, UAD Negative (Negative); Urine Specific Gravity 1.008 (1.001-1.035); Urine Urobilinogen Normal (Negative); Urine WBC 46 /hpf (0 - 5); Urine pH 5.5 (5.0-8.0)
[2023-04-11 12:39] LABS: Creatinine, Urine 42.32 mg/dL (30.0-125.0); Protein, Urine 8.6 mg/dL (0.0-11.9); Urine Protein/Creatinine Ratio 0.2
[2023-04-11 12:41] LABS: Alanine Aminotransferase 23 U/L (7-40); Alkaline Phosphatase 96 U/L (46-116); Anion Gap 10 (5-15); BUN/Creatinine Ratio 23.4 (10.0-20.0); Blood Urea Nitrogen 45 mg/dL (9-23); Calcium 10.4 mg/dL (8.5-10.1); Carbon Dioxide 25 mmol/L (20-30); Chloride 100 mmol/L (98-107); GFR African American 32 mL/min; GFR Non-African American 26 mL/min; Glucose 327 mg/dL (74-106); Sodium 135 mmol/L (136-145)
[2023-04-11 12:43] LABS: Albumin 4.3 g/dL (3.2-4.8); Aspartate Aminotransferase 35 U/L (13-40); Bilirubin, Total 0.9 mg/dL (0.2-1.0); Phosphorus 3.8 mg/dL (2.4-5.1); Total Protein 7.4 g/dL (5.7-8.2)
[2023-04-11 12:55] LABS: Uric Acid 8.7 mg/dL (3.1-7.8)
== END | disposition home or self-care (01) ==
LOC: LAB 11:05
PROVIDERS: ATTEND Nurse Practitioner Family
DX: N18.31 Chronic kidney disease, stage 3a (principal); D63.1 Anemia in chronic kidney disease; R80.9 Proteinuria, unspecified; M10.9 Gout, unspecified; E56.9 Vitamin deficiency, unspecified; E83.52 Hypercalcemia
CPT/HCPCS: 36415; 80053; 80069; 81001; 82306; 82570; 83970; 84156; 84550; 85025

== ENCOUNTER → 2023-07-07 | Outpatient (CLI) | payer MEDICARE, BC ==
[~2023-07-07] MED LIST changes: +POTA-36 PO; -POTA10TA51 PO
[2023-07-07 11:06] LABS: Urine Bacteria FEW /hpf (None Seen); Urine Blood Negative /uL (Negative); Urine Clarity Turbid (Clear); Urine Color Yellow (Yellow); Urine Hyaline Cast MOD /lpf (0 - 2); Urine Protein, UAD Negative (Negative); Urine Urobilinogen Normal (Negative); Urine WBC 26 /hpf (0 - 5)
[2023-07-07 11:09] LABS: Basophils # (auto) 0.1 10 ^3/uL (0-0.2); Basophils % (auto) 0.6 % (0.0-2.0); Eosinophils # (auto) 0.4 10 ^3/uL (0-0.8); Eosinophils % (auto) 4.9 % (0.0-7.0); Hematocrit 43.7 % (36.0-46.0); Hemoglobin 14.8 g/dL (12.2-16.2); Lymphocytes # (auto) 1.3 10 ^3/uL (0.4-5.4); Lymphocytes % (auto) 15.6 % (10.0-50.0); Mean Corpuscular Hemoglobin 28.3 pg (28.0-32.0); Mean Corpuscular Hgb Conc. 33.8 g/dL (32.0-36.0); Mean Corpuscular Volume 83.8 fL (80.0-100.0); Monocytes # (auto) 1.1 10 ^3/uL (0-1.3); Monocytes % (auto) 13.6 % (0.0-12.0); Neutrophils # (auto) 5.5 10 ^3/uL (1.6-8.6); Neutrophils % (auto) 65.3 % (37.0-80.0); Nucleated Red Blood Cells % 0.1 %; Red Blood Cells 5.22 10^6/uL (4.0-5.20); Red Cell Distribution Width 13.7 % (11.8-14.3); White Blood Cell 8.4 10^3/uL (4.4-10.8)
[2023-07-07 11:39] LABS: Creatinine, Urine 77.56 mg/dL (30.0-125.0)
[2023-07-07 11:44] LABS: Albumin 4.3 g/dL (3.2-4.8); Bilirubin, Direct 0.5 mg/dL (<0.3)
[2023-07-07 11:45] LABS: Total Protein 7.1 g/dL (5.7-8.2)
[2023-07-07 12:03] LABS: Uric Acid 9.3 mg/dL (3.1-7.8)
== END | disposition home or self-care (01) ==
LOC: LAB 10:43
PROVIDERS: ATTEND Internal Medicine Nephrology
DX: E21.3 Hyperparathyroidism, unspecified (principal); E56.9 Vitamin deficiency, unspecified; R80.9 Proteinuria, unspecified
CPT/HCPCS: 36415; 80076; 81001; 82043; 82306; 82570; 83970; 84550; 85025

== ENCOUNTER → 2023-07-28 | Outpatient (CLI) | payer MEDICARE, BC ==
[2023-07-28 09:15] LABS: Potassium 3.9 mmol/L (3.5-5.1)
[2023-07-28 09:16] LABS: Calcium 10.6 mg/dL (8.5-10.1)
[2023-07-28 09:23] LABS: Albumin 4.5 g/dL (3.2-4.8); Phosphorus 4.1 mg/dL (2.4-5.1)
== END | disposition home or self-care (01) ==
LOC: LAB 08:26
PROVIDERS: ATTEND Internal Medicine Nephrology
DX: E11.22 Type 2 diabetes mellitus with diabetic chronic kidney disease (principal); N18.30 Chronic kidney disease, stage 3 unspecified; D63.1 Anemia in chronic kidney disease; E21.3 Hyperparathyroidism, unspecified; R80.9 Proteinuria, unspecified; E55.9 Vitamin D deficiency, unspecified; E11.21 Type 2 diabetes mellitus with diabetic nephropathy; N39.0 Urinary tract infection, site not specified
CPT/HCPCS: 36415; 80069